=== PATIENT | female | born 1950 | race Hispanic/Latino ===

== ENCOUNTER 2017-01-22 17:33 | Inpatient (IN) | payer MEDICARE, OTHER ==
[2017-01-22] MEDS ORDERED: Piperacillin/Tazobact 3.375 gm 100 ML IVPB STA (18:49)
[2017-01-22 19:22] LABS: BASO # 0.1 K/uL (0.0-0.2); BASO % 0.8 % (0.0-2.0); EOS % 0.4 % (0.0-4.0); HEMOGLOBIN 16.1 g/dL (11.0-16.0); LYMPH # 2.3 K/uL (1.0-4.3); LYMPH % 22.6 % (20.0-40.0); MEAN CORPUSCULAR HGB CONC 33.3 g/dL (33.0-37.0); MEAN PLATELET VOLUME 10.8 fL (7.2-11.7); MONO # 0.6 K/uL (0.0-0.8); MONO % 5.7 % (0.0-10.0); NEUT # 7.1 K/uL (1.8-7.0); NEUT % 70.5 % (50.0-75.0); NRBC % 0.1 % (0.0-2.0); RBC 5.18 Mil/uL (3.80-5.20); RED CELL DISTRIBUTION WIDTH 14.4 % (11.5-14.5); WHITE BLOOD COUNT 10.1 K/uL (4.8-10.8)
[2017-01-22] MEDS ORDERED: Vancomycin 1 GM 1 GM/250 ML BAG IVPB ONE (19:24)
[2017-01-22] MEDS ORDERED: Piperacillin/Tazobact 3.375 gm 100 ML IVPB ONE (19:25)
[2017-01-22 19:29] LABS: ALBUMIN 4.5 g/dL (3.5-5.0)
[2017-01-22 19:31] LABS: GFR AFRICAN-AMERICAN > 60; GFR NON-AFRICAN AMERICAN > 60
[2017-01-22 19:32] LABS: ALB/GLOB RATIO 1.2 (1.0-2.1); ALT/SGPT 42 U/L (9-52); AST/SGOT 35 U/L (14-36); BLOOD UREA NITROGEN 8 mg/dL (7-17); INR 1.1; PROTHROMBIN TIME 11.9 SECONDS (9.7-12.2)
[2017-01-22 19:33] LABS: CALCIUM 8.8 mg/dl (8.6-10.4)
--- NOTE | 2017-01-22 19:53 | C.PDOC ---
History Of Present Illness Patient is a 67 y/o female, with history of breast CA, that presents to the ED for evaluation of wounds, and ulcers to left chest wall. Notes that she was diagnosed with breast CA 1 year ago, and refused any radiation therapy. Pt states that a new ulcer is developing now. Otherwise, denies any fever, or any other complaints at this time. Time Seen by Provider: 01/22/17 18:40 Chief Complaint (Nursing): Abnormal Skin Integrity History Per: Patient History/Exam Limitations: no limitations Onset/Duration Of Symptoms: Days Current Symptoms Are (Timing): Still Present Location Of Injury: Left: Chest, Anterior: Chest Recent travel outside of the [place]: No Additional History Per: Patient Past Medical History Reviewed: Historical Data, Nursing Documentation, Vital Signs Vital Signs: Last Vital Signs Temp 97.6 F 01/22/17 21:01 Pulse 81 01/22/17 21:01 Resp 20 01/22/17 21:01 BP 138/74 01/22/17 21:01 Pulse Ox 95 01/22/17 21:58 - Medical History PMH: Pneumothorax Denies: Chronic Kidney Disease - [facility] Procedures EXCISION OF LEFT BREAST, EXTERNAL APPROACH (12/24/15) Family History: States: Unknown Family Hx - Social History Hx Alcohol Use: Yes (quit 2 years ago) Hx Substance Use: No - Immunization History Hx Tetanus Toxoid Vaccination: No Hx Influenza Vaccination: No Hx Pneumococcal Vaccination: No Review Of Systems Except As Marked, All Systems Reviewed And Found Negative. Constitutional: Negative for: Fever, Chills Cardiovascular: Negative for: Chest Pain, Palpitations, Light Headedness Respiratory: Negative for: Shortness of Breath Skin: Positive for: Other (wound and ulcer to left chest wall) Physical Exam - Physical Exam Appears: Non-toxic, No Acute Distress Skin: Warm, Dry, Other (Left breast: 2cm of superficial ulcer that appears necrotic. Left side: 2cm of ulcer with purulent discharge) Head: Atraumatic, Normacephalic Eye(s): bilateral: Normal Inspection, EOMI Neck: Normal ROM, Supple Chest: Symmetrical, Deformity (deformed left breast with multiple ulcers ) Cardiovascular: Rhythm Regular, No Murmur Respiratory: Normal Breath Sounds, No Rales, No Rhonchi, No Wheezing Gastrointestinal/Abdominal: Soft, No Tenderness Extremity: Normal ROM, No Deformity Neurological/Psych: Oriented x3, Normal Speech, Normal Cognition ED Course And Treatment - Laboratory Results Result Diagrams: 01/22/17 19:12 01/22/17 19:12 O2 Sat by Pulse Oximetry: 96 (on RA) Pulse Ox Interpretation: Normal Progress Note: Labs, CXR ordered and reviewed. Patient was given Vancomycin, and Zosyn in the ER. On reassessment, patient is resting comfortably, with no acute distress. Disposition - Disposition Disposition: HOSPITALIZED Disposition Time: 07:00 Condition: FAIR - Clinical Impression Clinical Impression: Ulcer of skin of breast, Breast cancer - Scribe Statement The provider has reviewed the documentation as recorded by the Scribe Angelo Esquivel All medical record entries made by the Joyibzeferino were at my direction and personally dictated by me. I have reviewed the chart and agree that the record accurately reflects my personal performance of the history, physical exam, medical decision making, and the department course for this patient. I have also personally directed, reviewed, and agree with the discharge instructions and disposition.
[2017-01-22 21:03] VITALS: RESP 20
--- NOTE | 2017-01-22 23:56 | CP.PCM.CON ---
History of Present Illness - History of Present Illness History of Present Illness: INFECTIOUS DISEASE CONSULT. HPI; .67-year-old female with history of LT. breast CA diagnosed one year ago when she presented to the ER with a necrotic mass left breast. Patient has refused radiation therapy but is on by mouth chemotherapy prescribed by her oncologist.CT chest in December 2015 showed bilateral pulmonary nodules likely metastatic disease both lungs. Patient states that a new ulcer is now developing. Patient denies any fever or any other complaints at this time. Patient denies any cough or expectoration or hemoptysis. Patient is a heavy smoker for past several years but states has recently quit smoking. INFECTIOUS DISEASE CONSULTATION REQUESTED BY PMD FOR FUNGATING NECROTIC ULCER LEFT BREAST. patient was started on IV Zosyn 3.3758 hourly.. Patient denies any weight loss or loss of appetite. PMH; PTX., CA LT BREAST WITH METASTASIS TO THE LUNG.DX 2016 ALLERGY; NKA FH;DENIES HISTORY OF CANCER OF THE BREAST IN FAMILY MEMBERS. SOCIAL HISTORY; SMOKING >10 CIGARETTES /DAY.FOR SEVERAL YEARS.RECENTLY QUIT SMOKING ONE MONTH AGO. DENIES USE OF ILLICIT DRUGS. QUIT ALCOHOL USE FEW YEARS AGO. MEDS; REVIEWED. Review of Systems - Constitutional Constitutional: absent: Chills, Fever - EENT Eyes: absent: Change in Vision Nose/Mouth/Throat: absent: Mouth Lesions, Sore Throat - Breasts Breasts: Change in Shape, Skin Changes (LEFT BREAST WITH NECROTIC ULCER AND INVOLUTION OF THE BREAST. D.RAINAGE AT THE BASE OF THE ULCER) - Cardiovascular Cardiovascular: Dyspnea on Exertion. absent: Chest Pain at Rest, Dyspnea - Respiratory Respiratory: absent: Cough, Hemoptysis - Gastrointestinal Gastrointestinal: absent: Abdominal Pain, Nausea, Vomiting - Genitourinary Genitourinary: absent: Dysuria, Pyuria - Menstruation Menstruation: Post Menopausal - Integumentary Integumentary: Skin Ulcer (LEFT BREAST.) - Neurological Neurological: absent: Headaches ( wE'LL), Vertigo - Hematologic/Lymphatic Hematologic: As Per HPI. absent: Lymphadenopathy Past Patient History - Infectious Disease Hx of Infectious Diseases: None - Past Medical History & Family History Past Medical History?: Yes - Past Social History Smoking Status: Light Smoker < 10 Cigarettes Daily - CARDIAC Hx Cardiac Disorders: No - PULMONARY Other/Comment: pneumothorax - NEUROLOGICAL Hx Neurological Disorder: No - HEENT Hx HEENT Problems: No - RENAL Hx Chronic Kidney Disease: No - ENDOCRINE/METABOLIC Hx Endocrine Disorders: No - HEMATOLOGICAL/ONCOLOGICAL Hx Blood Disorders: No Other/Comment: PT DENIES HISTORY - INTEGUMENTARY Hx Dermatological Problems: No Other/Comment: left breast scab - MUSCULOSKELETAL/RHEUMATOLOGICAL Hx Falls: No - GASTROINTESTINAL Hx Vomiting: No - GENITOURINARY/GYNECOLOGICAL Hx Genitourinary Disorders: No - PSYCHIATRIC Hx Substance Use: No - SURGICAL HISTORY Hx Surgeries: Yes Hx Breast Biopsy: Yes - ANESTHESIA Hx Anesthesia: Yes Hx Anesthesia Reactions: No Hx Malignant Hyperthermia: No Has any member of the family had a problem w/ anesthesia?: No Meds Allergies/Adverse Reactions: Allergies Allergy/AdvReac Type Severity Reaction Status Date / Time No Known Allergies Allergy Verified 01/22/17 18:05 - Medications Medications: Current Medications Piperacillin Sod/Tazobactam Sod (Zosyn 3.375 Gm Iv Premix) 3.375 gm in 50 mls @ 100 mls/hr IVPB Q8H JET Pneumococcal Polyvalent Vaccine (Pneumovax 23 Vaccine) 0.5 ml IM .ONCE ONE Stop: 01/24/17 10:01 Physical Exam - Constitutional Appears: No Acute Distress - Head Exam Head Exam: NORMAL INSPECTION - Eye Exam Eye Exam: EOMI, PERRL. absent: Scleral icterus - ENT Exam ENT Exam: Normal Oropharynx - Neck Exam Neck exam: Negative for: Lymphadenopathy - Respiratory Exam Respiratory Exam: Chest Wall Tenderness (LEFT SIDE CHEST WALL BREAST ULCER WITH DRAINAGE AND MALODOROUS DISCHARGE.), Clear to Auscultation Bilateral - Cardiovascular Exam Cardiovascular Exam: REGULAR RHYTHM, +S1, +S2 - GI/Abdominal Exam GI & Abdominal Exam: Normal Bowel Sounds, Soft. absent: Organomegaly - Extremities Exam Extremities exam: Positive for: pedal pulses present. Negative for: calf tenderness, pedal edema - Neurological Exam Neurological exam: Alert, CN II-XII Intact, Oriented x3, Reflexes Normal - Psychiatric Exam Psychiatric exam: Normal Mood - Skin Skin Exam: Normal Color, Warm Results - Vital Signs Recent Vital Signs: Last Vital Signs Temp 97.6 F 01/22/17 21:01 Pulse 81 01/22/17 21:01 Resp 20 01/22/17 21:01 BP 138/74 01/22/17 21:01 Pulse Ox 95 01/22/17 21:58 - Labs Result Diagrams: 01/23/17 07:31 01/23/17 07:31 - Imaging and Cardiology Chest x-ray Status: Report reviewed by me (increased interstitial markings with upper lobe granulomatous changes. Deformity left breast ?previous surgery.) Assessment & Plan (1) Ulcer of chest wall with necrosis of muscle Assessment and Plan: pancultures. continue IV Zosyn 3.375 every 8 hourly .01/22/17 At IV vancomycin 1 g every 24 hourly. 01/22/17. Follow-up Vanco trough level prior to the fourth dose and keep it between 10 and 20. Follow-up renal functions closely. Will adjust antibiotics after cultures are obtained. Wound care for left breast ulcer. Status: Acute (2) Breast cancer Assessment and Plan: patient has left breast CA WITH LUNG METASTASIS DIAGNOSIS 2015. [facility] CHEMOTHERAPY WITH ONCOLOGIST DR GRAVES. Status: Acute (3) COPD (chronic obstructive pulmonary disease) Status: Acute (4) Tobacco abuse Assessment and Plan: tobacco cessation encouraged. Status: Acute
--- NOTE | 2017-01-22 23:56 | CP.PCM.HP ---
History of Present Illness - History of Present Illness History of Present Illness: COMPREHENSIVE HISTORY & PHYSICAL EXAM HPI H/O BREAST CA SEEN FIRST TIME IN IN 2016 WITH ULCERATING MASS ON LEFT CHEST WALLWITH DRAINAGE GROWING SA NOT MRSA , TREATED WITH IV AB AND F/U WITH ONCOLOGY . APPERENTLY PT HAS REFUSED SOME OF THE TREATMENT AND NOW HAS PURULENT DRAINING ULCER ON LEFT CHEST WALL 2016 , CT CHEST SHOWED LEFT BREAST MASS INFILTRATING CHEST WALL AND METS TO LUNGS PAST HIST. PERSONAL HIST: Smoking. QUIT 1 YR AGO 40 PPD Alcohol. N Allergy N Travel_- . FAMILY HIST : ROS : Constitutional: Negative for weight change, chills, night sweats, fatigue and usage of assist device. Eyes: Negative for redness, swelling, itching, discharge, vision changes, blurry vision, double vision, glaucoma, cataracts, Ears: Negative for hearing loss, ringing, , tinnitus, vertigo Nose: Negative for rhinorrhea, stuffiness, sniffing, itching, postnasal drip, discoloration, nasal congestion and epistaxis. Throat: Negative for throat clearing, sore throat, hoarseness, difficulty swallowing and difficulty speaking. Respiratory: Negative for cough, , sputum production, chest tightness, wheezing, pleuritic chest pain ,daytime somnolence, chronic cough, hemoptysis, snoring at night, Cardiovascular: Negative for chest pain, palpitations, orthopnea, PND, Edema of legs, leg cramps, angina, claudication, , irregular heartbeat, Neurology: Negative for irritability, muscle weakness, numbness and tingling, seizures, tremors, migraines, slurred speech, syncope, memory loss, mood changes , recurrent headaches Gastrointestinal: Negative for difficulty swallowing, diarrhea, constipation, black stools, rectal bleeding, nausea, flatulence, reflux, poor appetite, changes in bowel habits, abdominal pain Genitourinary: Negative for frequent urination, hematuria, discharge, incontinence, urinary retention, frequent UTI, Psychiatric: Negative for depression, anxiety/panic, suicidal tendencies, Musculoskeletal: Negative for swollen joints, back pain, , neck pain, morning stiffness of joints, . Skin: Negative for rash, ulcers, itching, dry skin and pigmented lesions. P/E: Constitutional: Appears stated age and in no apparent distress. Head: Normocephalic. Ears: External ear canals patent without inflammation. Tympanic membranes intact with normal light reflex and landmark. Eyes: Pupils are central, bilaterally equal, symmetrical and reacts to light with normal movements and no icterus or pallor. Nose: External nares are patent. Mucosa is pink Mouth-Throat: Good general appearance and condition. No post-pharyngeal/oropharyngeal erythema and tonsillar hypertrophy. Good dental hygiene. Neck-Lymphatic: Neck is supple with normal ROM, no thyromegaly, lymph nodes or masses. JVD is normal with no carotid bruit. Lungs: Clear to percussion and auscultation with bilateral normal air entry. Cardiovascular: S1 and S2 are normal with no murmurs, gallops and rub. GI Exam: No hepatomegaly. Abdomen is soft and non-tender. No Organomegaly , masses or hernias are evident and bowel sounds are normal and active. Neurology: Higher function and all cranial nerves intact, with no gross motor or sensory deficit. Superficial and deep reflexes are normal with downwards planters. No cerebellar deficit with normal gait. Musculoskeletal: No tender spots with normal curvature of the spine with no swelling or restricted ROM of the small and large joints. Extremities: Homans sign absent. Intact pulses with no pitting edema, calf tenderness or skin color changes. Skin: LARGE ULCER ON LEFT SIDE OF CHEST WALL WITH PURULENT DISCHARGE LAB/RADIOLOGY: ASSESMENT : METASTATIC BREAST CA WITH INFECTED ULCER ON CHEST WALL PLAN: SEE ORDERS Present on Admission - Present on Admission Any Indicators Present on Admission: No Past Patient History - Infectious Disease Hx of Infectious Diseases: None - Past Medical History & Family History Past Medical History?: Yes - Past Social History Smoking Status: Light Smoker < 10 Cigarettes Daily - CARDIAC Hx Cardiac Disorders: No - PULMONARY Other/Comment: pneumothorax - NEUROLOGICAL Hx Neurological Disorder: No - HEENT Hx HEENT Problems: No - RENAL Hx Chronic Kidney Disease: No - ENDOCRINE/METABOLIC Hx Endocrine Disorders: No - HEMATOLOGICAL/ONCOLOGICAL Hx Blood Disorders: No Other/Comment: PT DENIES HISTORY - INTEGUMENTARY Hx Dermatological Problems: No Other/Comment: left breast scab - MUSCULOSKELETAL/RHEUMATOLOGICAL Hx Falls: No - GASTROINTESTINAL Hx Vomiting: No - GENITOURINARY/GYNECOLOGICAL Hx Genitourinary Disorders: No - PSYCHIATRIC Hx Substance Use: No - SURGICAL HISTORY Hx Surgeries: Yes Hx Breast Biopsy: Yes - ANESTHESIA Hx Anesthesia: Yes Hx Anesthesia Reactions: No Hx Malignant Hyperthermia: No Has any member of the family had a problem w/ anesthesia?: No Meds Allergies/Adverse Reactions: Allergies Allergy/AdvReac Type Severity Reaction Status Date / Time No Known Allergies Allergy Verified 01/22/17 18:05 Results - Vital Signs Recent Vital Signs: Last Vital Signs Temp 97.6 F 01/22/17 21:01 Pulse 81 01/22/17 21:01 Resp 20 01/22/17 21:01 BP 138/74 01/22/17 21:01 Pulse Ox 95 01/22/17 21:58 - Labs Result Diagrams: 01/23/17 07:31 01/23/17 07:31
[2017-01-23] MEDS: Piperacill/Tazo 3.375gm in Dex 3.375 GM/50 ML BAG IVPB SCH ×3 (02:57→19:21)
[2017-01-23 07:42] LABS: BASO # 0.1 K/uL (0.0-0.2); EOS # 0.1 K/uL (0.0-0.7); EOS % 1.2 % (0.0-4.0); HEMOGLOBIN 15.3 g/dL (11.0-16.0); LYMPH # 2.8 K/uL (1.0-4.3); LYMPH % 33.4 % (20.0-40.0); MEAN CELL VOLUME 92.6 fL (81.0-99.0); MEAN CORPUSCULAR HGB CONC 33.4 g/dL (33.0-37.0); MEAN PLATELET VOLUME 11.1 fL (7.2-11.7); MONO # 0.5 K/uL (0.0-0.8); MONO % 6.1 % (0.0-10.0); NEUT % 58.3 % (50.0-75.0); NRBC % 0.2 % (0.0-2.0); RBC 4.95 Mil/uL (3.80-5.20); WHITE BLOOD COUNT 8.5 K/uL (4.8-10.8)
[2017-01-23 08:09] LABS: ALB/GLOB RATIO 1.2 (1.0-2.1); ALT/SGPT 34 U/L (9-52); AST/SGOT 35 U/L (14-36); BILIRUBIN,DIRECT 0.3 mg/dL (0.0-0.4); BLOOD UREA NITROGEN 8 mg/dL (7-17); CALCIUM 9.3 mg/dl (8.6-10.4); GFR AFRICAN-AMERICAN > 60; GFR NON-AFRICAN AMERICAN > 60
--- NOTE | 2017-01-23 09:36 | RAD ---
HISTORY: Chest pain COMPARISON: 12/24/2015 FINDINGS: LUNGS: Biapical pleural thickening with upper lobe granulomatous changes. Diffuse increased interstitial lung markings. Deformity of the left breast, perhaps sequelae of prior surgery. Correlation with lateral view may be helpful. PLEURA: No significant pleural effusion identified, no pneumothorax apparent. CARDIOVASCULAR: Normal. OSSEOUS STRUCTURES: No significant abnormalities. VISUALIZED UPPER ABDOMEN: Normal. OTHER FINDINGS: None. IMPRESSION: Biapical pleural thickening with upper lobe granulomatous changes. Diffuse increased interstitial lung markings. Deformity of the left breast, perhaps sequelae of prior surgery. Correlation with lateral view may be helpful.
[2017-01-23] MEDS: Enoxaparin 40 mg Syringe SC SCH (11:26)
--- NOTE | 2017-01-23 13:45 | CP.PCM.PN ---
Subjective - Date & Time of Evaluation Date of Evaluation: 01/23/17 Time of Evaluation: 13:43 - Subjective Subjective: CHIEF COMPLAINTS TODAY : MILD DISCOMFORT LEFT CHEST WALL ROS. HEENT : N. Resp : No cough, wheezing ,pleuritic CP ,or hemoptysis Cardio : No anginal CP, PND, orthopnea, palpitation GI : No abd.pain, n/v ,diarrhea or GI bleeding . GOLD BLOWER : No headache, vertigo, focal deficit. Musculoskel : No joint swelling , Derm : No rash Psych : Normal affect. Ext : No swelling ,calf pain PE. Pt. is alert awake in no distress. V.S As noted in the chart Head ,ear nose,throat and eyes : Normal. Neck : Supple with normal carotids. Lungs: Clear air entry. Heart : S1 & S2 normal with S4. No murmur. Abd : Soft non tender with normal bowel sounds. Neuro : Moves all ext. with no localized deficit. Ext : No edema with intact pulses.Non tender calves Derm : PURULENT DRAINING ULCER ON LEFT CHEST WALL WITH CELLULITIS LABS/RADIOLOGY: ASSESSMENT/PLAN : ID/ONCOLOGY CONSULT Objective - Vital Signs/Intake and Output Vital Signs (last 24 hours): Temp Pulse Resp BP Pulse Ox 97.4 F L 68 20 119/77 96 01/23/17 08:00 01/23/17 08:00 01/23/17 08:00 01/23/17 08:00 01/23/17 08:00 - Medications Medications: Current Medications Enoxaparin Sodium (Lovenox) 40 mg SC DAILY [facility] Last Admin: 01/23/17 11:26 Dose: 40 mg Piperacillin Sod/Tazobactam Sod (Zosyn 3.375 Gm Iv Premix) 3.375 gm in 50 mls @ 100 mls/hr IVPB Q8H JET Last Admin: 01/23/17 11:29 Dose: 100 mls/hr Vancomycin HCl 1 gm/ Sodium (Chloride) 250 mls @ 166.7 mls/hr IVPB Q24H JET Last Admin: 01/23/17 00:27 Dose: 166.7 mls/hr Pneumococcal Polyvalent Vaccine (Pneumovax 23 Vaccine) 0.5 ml IM .ONCE ONE Stop: 01/24/17 10:01 - Labs Labs: 01/23/17 07:31 07/07/17 07:31 PT 11.9 SECONDS (9.7-12.2) 01/22/17 19:12 INR 1.1 01/22/17 19:12 APTT 28 SECONDS (21-34) 01/22/17 19:12
--- NOTE | 2017-01-23 19:24 | CP.PCM.CON ---
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 The patient was initially diagnosed in 12/2015 after presenting with a large ulcerated breast mass. She deferred radiation therapy and was placed on exemestane with excellent response. She has not been seen in the office since 05/2016. She reports the breast mass shrank considerably but most recently small spots arose which concerned her so she came to the ER. She denies shortness of breath and chest pain. Past medical history: Stage IV breast cancer Past surgical history: None Family history: Denies hematologic and oncologic problems Social history: +tobacco abuse Allergies: NKA Review of systems: All remaining review of systems including HEENT, cardiovascular, respiratory, gastrointestinal, genitourinary, musculoskeletal, dermatologic, neurologic, and psychiatric are negative unless mentioned in the HPI. Past Patient History - Infectious Disease Hx of Infectious Diseases: None - Past Medical History & Family History Past Medical History?: Yes - Past Social History Smoking Status: Light Smoker < 10 Cigarettes Daily - CARDIAC Hx Cardiac Disorders: No - PULMONARY Other/Comment: pneumothorax - NEUROLOGICAL Hx Neurological Disorder: No - HEENT Hx HEENT Problems: No - RENAL Hx Chronic Kidney Disease: No - ENDOCRINE/METABOLIC Hx Endocrine Disorders: No - HEMATOLOGICAL/ONCOLOGICAL Hx Blood Disorders: No Other/Comment: PT DENIES HISTORY - INTEGUMENTARY Hx Dermatological Problems: No Other/Comment: left breast scab - MUSCULOSKELETAL/RHEUMATOLOGICAL Hx Falls: No - GASTROINTESTINAL Hx Vomiting: No - GENITOURINARY/GYNECOLOGICAL Hx Genitourinary Disorders: No - PSYCHIATRIC Hx Substance Use: No - SURGICAL HISTORY Hx Surgeries: Yes Hx Breast Biopsy: Yes - ANESTHESIA Hx Anesthesia: Yes Hx Anesthesia Reactions: No Hx Malignant Hyperthermia: No Has any member of the family had a problem w/ anesthesia?: No Meds Allergies/Adverse Reactions: Allergies Allergy/AdvReac Type Severity Reaction Status Date / Time No Known Allergies Allergy Verified 01/22/17 18:05 - Medications Medications: Current Medications Enoxaparin Sodium (Lovenox) 40 mg SC DAILY [facility] Last Admin: 01/23/17 11:26 Dose: 40 mg Piperacillin Sod/Tazobactam Sod (Zosyn 3.375 Gm Iv Premix) 3.375 gm in 50 mls @ 100 mls/hr IVPB Q8H [facility] Last Admin: 01/23/17 19:21 Dose: 100 mls/hr Vancomycin HCl 1 gm/ Sodium (Chloride) 250 mls @ 166.7 mls/hr IVPB Q24H [facility] Last Admin: 01/23/17 00:27 Dose: 166.7 mls/hr Pneumococcal Polyvalent Vaccine (Pneumovax 23 Vaccine) 0.5 ml IM .ONCE ONE Stop: 01/24/17 10:01 Physical Exam - Head Exam Head Exam: ATRAUMATIC - Eye Exam Eye Exam: Normal appearance - ENT Exam ENT Exam: Mucous Membranes Dry - Respiratory Exam Respiratory Exam: NORMAL BREATHING PATTERN - Cardiovascular Exam Cardiovascular Exam: +S1, +S2 - GI/Abdominal Exam GI & Abdominal Exam: Normal Bowel Sounds - Extremities Exam Extremities exam: Positive for: normal inspection - Neurological Exam Neurological exam: Oriented x3 - Psychiatric Exam Psychiatric exam: Normal Affect, Normal Mood - Skin Skin Exam: Warm Results - Vital Signs Recent Vital Signs: Last Vital Signs Temp 98.2 F 01/23/17 15:00 Pulse 85 01/23/17 15:00 Resp 20 01/23/17 15:00 BP 109/62 01/23/17 15:00 Pulse Ox 96 01/23/17 15:00 - Labs Result Diagrams: 01/24/17 07:00 01/24/17 07:00 Labs: Laboratory Results - last 24 hr 01/23/17 01/23/17 01/23/17 07:31 07:31 07:31 WBC 8.5 RBC 4.95 Hgb 15.3 Hct 45.8 MCV 92.6 MCH 31.0 MCHC 33.4 RDW 14.0 Plt Count 146 MPV 11.1 Neut % (Auto) 58.3 Lymph % (Auto) 33.4 [place] % (Auto) 6.1 Eos % (Auto) 1.2 Baso % (Auto) 1.0 Neut # 5.0 Lymph # 2.8 [place] # 0.5 Eos # 0.1 Baso # 0.1 ESR 1 Sodium 142 Potassium 3.5 L Chloride 103 Carbon Dioxide 28 Anion Gap 15 BUN 8 Creatinine 0.7 Est GFR ( Amer) > 60 Est GFR (Non-Af Amer) > 60 Random Glucose 104 Calcium 9.3 Total Bilirubin 1.0 Direct Bilirubin 0.3 AST 35 ALT 34 Alkaline Phosphatase 79 C-React Prot High Sens 1.12 Total Protein 7.3 Albumin 4.0 Globulin 3.3 Albumin/Globulin Ratio 1.2 CA 15-3 Antigen 16.6 Assessment & Plan (1) Breast cancer Assessment and Plan: skin ulceration with lung metastasis on hormonal therapy with great improvement in chest wall mass will repeat CT scan to evaluate systemic response to therapy discussed importance of outpatient f/u daily hormonal therapy Thank you for this interesting consult. Status: Acute
--- NOTE | 2017-01-23 22:26 | CP.PCM.PN ---
Subjective - Date & Time of Evaluation Date of Evaluation: 01/23/17 Time of Evaluation: 22:26 - Subjective Subjective: AFEBRILE, NO NEW COMPLAINTS. SEEN BY WOUND CARE Objective - Vital Signs/Intake and Output Vital Signs (last 24 hours): Temp Pulse Resp BP Pulse Ox 98.2 F 85 20 109/62 96 01/23/17 15:00 01/23/17 15:00 01/23/17 15:00 01/23/17 15:00 01/23/17 15:00 - Medications Medications: Current Medications Enoxaparin Sodium (Lovenox) 40 mg SC DAILY [facility] Last Admin: 01/23/17 11:26 Dose: 40 mg Piperacillin Sod/Tazobactam Sod (Zosyn 3.375 Gm Iv Premix) 3.375 gm in 50 mls @ 100 mls/hr IVPB Q8H [facility] Last Admin: 01/23/17 19:21 Dose: 100 mls/hr Vancomycin HCl 1 gm/ Sodium (Chloride) 250 mls @ 166.7 mls/hr IVPB Q24H [facility] Last Admin: 01/23/17 00:27 Dose: 166.7 mls/hr Pneumococcal Polyvalent Vaccine (Pneumovax 23 Vaccine) 0.5 ml IM .ONCE ONE Stop: 01/24/17 10:01 - Labs Labs: 01/23/17 07:31 01/23/17 07:31 PT 11.9 SECONDS (9.7-12.2) 01/22/17 19:12 INR 1.1 01/22/17 19:12 APTT 28 SECONDS (21-34) 01/22/17 19:12 - Constitutional Appears: No Acute Distress - Eye Exam Eye Exam: EOMI, PERRL. absent: Scleral icterus - ENT Exam ENT Exam: Normal Oropharynx - Neck Exam Neck Exam: Normal Inspection. absent: Lymphadenopathy - Respiratory Exam Respiratory Exam: Clear to Ausculation Bilateral - Cardiovascular Exam Cardiovascular Exam: REGULAR RHYTHM, +S1, +S2 - GI/Abdominal Exam GI & Abdominal Exam: Soft, Normal Bowel Sounds. absent: Organomegaly - Extremities Exam Extremities Exam: Normal Capillary Refill. absent: Calf Tenderness, Pedal Edema - Neurological Exam Neurological Exam: Alert, Awake, CN II-XII Intact, Normal Gait, Oriented x3, Reflexes Normal - Psychiatric Exam Psychiatric exam: Normal Mood - Additional Findings Additional findings: LEFT BREAST WOUND DRESSED BY WOUND CARE dRESSING CLEAN DRY AND INTACT pATIENT APPLIED MED HONEY Assessment and Plan (1) Ulcer of chest wall with necrosis of muscle Assessment & Plan: pancultures. continue IV Zosyn 3.375 every 8 hourly .01/22/17 At IV vancomycin 1 g every 24 hourly. 01/22/17. Follow-up Vanco trough level prior to the fourth dose and keep it between 10 and 20. Follow-up renal functions closely. Will adjust antibiotics after cultures are obtained. Wound care for left breast ulcer. Status: Acute (2) Breast cancer Assessment & Plan: patient has left breast CA WITH LUNG METASTASIS DIAGNOSIS 2015. rEVIEW CHEMOTHERAPY WITH ONCOLOGIST DR GRAVES. Status: Acute (3) Tobacco abuse Assessment & Plan: TOBACCO CESSATION ENCOURAGED Status: Acute (4) COPD (chronic obstructive pulmonary disease) Status: Acute
[2017-01-24] MEDS: Piperacill/Tazo 3.375gm in Dex 3.375 GM/50 ML BAG IVPB SCH ×3 (03:09→19:00)
[2017-01-24 07:23] LABS: BASO # 0.1 K/uL (0.0-0.2); BASO % 0.8 % (0.0-2.0); EOS # 0.1 K/uL (0.0-0.7); HEMOGLOBIN 14.7 g/dL (11.0-16.0); LYMPH # 2.9 K/uL (1.0-4.3); LYMPH % 38.6 % (20.0-40.0); MEAN CELL VOLUME 93.5 fL (81.0-99.0); MEAN CORPUSCULAR HEMOGLOBIN 30.8 pg (27.0-31.0); MEAN CORPUSCULAR HGB CONC 32.9 g/dL (33.0-37.0); MEAN PLATELET VOLUME 10.9 fL (7.2-11.7); MONO # 0.5 K/uL (0.0-0.8); MONO % 7.3 % (0.0-10.0); NEUT # 3.9 K/uL (1.8-7.0); NEUT % 52.3 % (50.0-75.0); RBC 4.76 Mil/uL (3.80-5.20); RED CELL DISTRIBUTION WIDTH 14.1 % (11.5-14.5); WHITE BLOOD COUNT 7.4 K/uL (4.8-10.8)
[2017-01-24 07:24] LABS: ALBUMIN 4.1 g/dL (3.5-5.0)
[2017-01-24 07:26] LABS: GFR AFRICAN-AMERICAN > 60; GFR NON-AFRICAN AMERICAN > 60
[2017-01-24 07:27] LABS: ALB/GLOB RATIO 1.2 (1.0-2.1); ALT/SGPT 39 U/L (9-52); AST/SGOT 44 U/L (14-36); BLOOD UREA NITROGEN 12 mg/dL (7-17)
[2017-01-24] MEDS ORDERED: Pneumococcal 23-Valent Vaccine IM ONE (10:00)
[2017-01-24] MEDS: Enoxaparin 40 mg Syringe SC SCH (11:01)
--- NOTE | 2017-01-24 13:49 | CP.PCM.PN ---
Subjective - Date & Time of Evaluation Date of Evaluation: 01/24/17 Time of Evaluation: 13:49 - Subjective Subjective: CHIEF COMPLAINTS TODAY : AFEBRILE, c/o mild discomfort left chest wall. Seen by hematology oncology and noted. ROS. HEENT : N. Resp : No cough, wheezing ,pleuritic CP ,or hemoptysis Cardio : No anginal CP, PND, orthopnea, palpitation GI : No abd.pain, n/v ,diarrhea or GI bleeding . 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 Musculoskel : No joint swelling , Derm : No rash Psych : Normal affect. Ext : No swelling ,calf pain PE. Pt. is alert awake in no distress. V.S As noted in the chart Head ,ear nose,throat and eyes : Normal. Neck : Supple with normal carotids. Lungs: Clear air entry. Heart : S1 & S2 normal with S4. No murmur. Abd : Soft non tender with normal bowel sounds. Neuro : Moves all ext. with no localized deficit. Ext : No edema with intact pulses.Non tender calves Derm : PURULENT DRAINING ULCER ON LEFT CHEST WALL WITH CELLULITIS LABS/RADIOLOGY: wound culture- staph aureus-sensitivity pending. Objective - Vital Signs/Intake and Output Vital Signs (last 24 hours): Temp Pulse Resp BP Pulse Ox 98.2 F 78 20 109/70 97 01/24/17 07:35 01/24/17 07:35 01/24/17 07:35 01/24/17 07:35 01/24/17 07:35 Intake and Output: 01/24/17 01/24/17 06:59 18:59 Intake Total 550 Balance 550 - Medications Medications: Current Medications Enoxaparin Sodium (Lovenox) 40 mg SC DAILY [facility] Last Admin: 01/24/17 11:01 Dose: Not Given Piperacillin Sod/Tazobactam Sod (Zosyn 3.375 Gm Iv Premix) 3.375 gm in 50 mls @ 100 mls/hr IVPB Q8H [facility] Last Admin: 01/24/17 10:53 Dose: 100 mls/hr Vancomycin HCl 1 gm/ Sodium (Chloride) 250 mls @ 166.7 mls/hr IVPB Q24H [facility] Last Admin: 01/23/17 23:50 Dose: 166.7 mls/hr - Labs Labs: 01/24/17 07:00 07/08/17 07:00 PT 11.9 SECONDS (9.7-12.2) 01/22/17 19:12 INR 1.1 01/22/17 19:12 APTT 28 SECONDS (21-34) 01/22/17 19:12 Assessment and Plan (1) 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 01/22/17. Follow-up Vanco trough level prior to the fourth dose and keep it between 10 and 20. Follow-up renal functions closely. Will adjust antibiotics after cultures are obtained. Wound care for left breast ulcer. Status: Acute (2) Breast cancer Assessment & Plan: patient for CT of the chest/ abdomen and pelvis with IV contrast today. Findings noted ct chest with IV contrast severe centrilobular paraseptal type emphysema. Bilateral pulmonary nodules with spiculated pleural-based mass in the lingula. Soft tissue deformity left breast-with postsurgical changes. ( see full report ) Status: Acute (3) Tobacco abuse Status: Acute (4) COPD (chronic obstructive pulmonary disease) Status: Acute
--- NOTE | 2017-01-24 14:03 | CP.PCM.PN ---
Subjective - Date & Time of Evaluation Date of Evaluation: 01/24/17 Time of Evaluation: 14:02 - Subjective Subjective: CHIEF COMPLAINTS TODAY : MILD DISCOMFORT LEFT CHEST WALL ROS. HEENT : N. Resp : No cough, wheezing ,pleuritic CP ,or hemoptysis Cardio : No anginal CP, PND, orthopnea, palpitation GI : No abd.pain, n/v ,diarrhea or GI bleeding . 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 Musculoskel : No joint swelling , Derm : No rash Psych : Normal affect. Ext : No swelling ,calf pain PE. Pt. is alert awake in no distress. V.S As noted in the chart Head ,ear nose,throat and eyes : Normal. Neck : Supple with normal carotids. Lungs: Clear air entry. Heart : S1 & S2 normal with S4. No murmur. Abd : Soft non tender with normal bowel sounds. Neuro : Moves all ext. with no localized deficit. Ext : No edema with intact pulses.Non tender calves Derm : PURULENT DRAINING ULCER ON LEFT CHEST WALL WITH CELLULITIS LABS/RADIOLOGY: C/S GRAM POS COCCI ASSESSMENT/PLAN : IV AB Objective - Vital Signs/Intake and Output Vital Signs (last 24 hours): Temp Pulse Resp BP Pulse Ox 98.2 F 78 20 109/70 97 01/24/17 07:35 01/24/17 07:35 01/24/17 07:35 01/24/17 07:35 01/24/17 07:35 Intake and Output: 01/24/17 01/24/17 11:59 23:59 Intake Total 300 Balance 300 - Medications Medications: Current Medications Enoxaparin Sodium (Lovenox) 40 mg SC DAILY [facility] Last Admin: 01/24/17 11:01 Dose: Not Given Piperacillin Sod/Tazobactam Sod (Zosyn 3.375 Gm Iv Premix) 3.375 gm in 50 mls @ 100 mls/hr IVPB Q8H [facility] Last Admin: 01/24/17 10:53 Dose: 100 mls/hr Vancomycin HCl 1 gm/ Sodium (Chloride) 250 mls @ 166.7 mls/hr IVPB Q24H [facility] Last Admin: 01/23/17 23:50 Dose: 166.7 mls/hr - Labs Labs: 01/24/17 07:00 01/24/17 07:00 PT 11.9 SECONDS (9.7-12.2) 01/22/17 19:12 INR 1.1 01/22/17 19:12 APTT 28 SECONDS (21-34) 01/22/17 19:12
[2017-01-24] MEDS ORDERED: Iohexol 300 100 ML IJ ONE (14:16)
--- NOTE | 2017-01-24 16:43 | CT ---
EXAM: CT Abdomen and Pelvis With Intravenous Contrast CLINICAL HISTORY: 67 years old, female; Pain; Abdominal pain; Generalized; Chest pain; Type not specified; Additional info: Breast cancer on treatment ? response TECHNIQUE: Axial computed tomography images of the abdomen and pelvis with intravenous contrast. This CT exam was performed using one or more of the following dose reduction techniques: automated exposure control, adjustment of the mA and/or kV according to patient size, and/or use of iterative reconstruction technique. Coronal and sagittal reformatted images were created and reviewed. CONTRAST: 100 mL of [id number] administered intravenously. COMPARISON: No relevant prior studies available. FINDINGS: Lower thorax: Pleural thickening is noted in the left hemithorax. ABDOMEN: Liver: Unremarkable. No mass. Gallbladder and bile ducts: Unremarkable. No calcified stones. No ductal dilation. Pancreas: Unremarkable. No mass. No ductal dilation. Spleen: Unremarkable. No splenomegaly. Adrenals: There is adreniform enlargement of both adrenal glands unchanged from previous. Kidneys and ureters: Unremarkable. No solid mass. No hydronephrosis. Stomach and bowel: Unremarkable. No obstruction. No mucosal thickening. Appendix: No findings to suggest acute appendicitis. PELVIS: Bladder: Unremarkable. No mass. Reproductive: There is an intrauterine device noted within the uterus. ABDOMEN and PELVIS: Intraperitoneal space: Unremarkable. No free air. No significant fluid collection. Bones/joints: There is a dextroscoliosis of the thoracic spine. There are secondary degenerative changes noted of the thoracic spine No acute fracture. No dislocation. Soft tissues: There is abnormal soft tissue thickening of the left breast Vasculature: Unremarkable. No abdominal aortic aneurysm. Lymph nodes: Unremarkable. No enlarged lymph nodes. IMPRESSION: 1. Abnormal soft tissue thickening and deformity of the left breast related to the patient's known breast cancer. 2. Pleural thickening noted in the left hemithorax. EXAM: CT Chest With Intravenous Contrast CLINICAL HISTORY: 67 years old, female; Pain; Abdominal pain; Generalized; Chest pain; Type not specified; Additional info: Breast cancer on treatment ? response TECHNIQUE: Axial computed tomography images of the chest with intravenous contrast. This CT exam was performed using one or more of the following dose reduction techniques: automated exposure control, adjustment of the mA and/or kV according to patient size, and/or use of iterative reconstruction technique. Coronal and sagittal reformatted images were created and reviewed. CONTRAST: 100 mL of [id number] administered intravenously. EXAM DATE/TIME: Exam ordered 01/24/2017 9:28 AM COMPARISON: No relevant prior studies available. FINDINGS: Lungs: There is a severe emphysema noted bilaterally predominantly of the centrilobular type with paraseptal type emphysema noted in the lung apices and along the fissures . 3 mm pleural-based pulmonary nodules noted in the right middle lobe. . A 3 mm pulmonary nodule is noted in the superior segment of the right upper lobe. A 3 mm pulmonary nodule is noted in the superior segment of the left upper lobe. Pleural space: A spiculated pleural-based parenchymal density is areas of pleural thickening are noted in the lingula. No pneumothorax. No significant effusion. Heart: Unremarkable. No cardiomegaly. No significant pericardial effusion. Bones/joints: Unremarkable. No acute fracture. No dislocation. Soft tissues: There is soft tissue thickening with retraction of the left breast. Calcification is noted within the area of soft tissue thickening. Vasculature: Unremarkable. No thoracic aortic aneurysm. Lymph nodes: Unremarkable. No enlarged lymph nodes. Adrenals: There is adreniform enlargement of both adrenal glands are stable IMPRESSION: 1. Severe central lobular and paraseptal type emphysema bilaterally 2. Bilateral pulmonary nodules including spiculated pleural-based mass in the lingula. Metastatic disease is among the diagnostic considerations. For high-risk patients (smoking history or other known risk factors) recommend follow-up CT at 15-21 months. If unchanged, no further follow-up. The patient's previous examination dated 12/24/2015 was not available at the time the study was reviewed. 3. Soft tissue distortion of the left breast which may be postsurgical or reflect the patient's known carcinoma
[2017-01-25] MEDS: Piperacill/Tazo 3.375gm in Dex 3.375 GM/50 ML BAG IVPB SCH ×3 (03:50→19:05)
[2017-01-25] MEDS: Enoxaparin 40 mg Syringe SC SCH (10:54)
--- NOTE | 2017-01-25 12:50 | CP.PCM.PN ---
Subjective - Date & Time of Evaluation Date of Evaluation: 01/24/17 Time of Evaluation: 18:00 - Subjective Subjective: Feeling better, breast discomfort improved Objective - Vital Signs/Intake and Output Vital Signs (last 24 hours): Temp Pulse Resp BP Pulse Ox 97.9 F 82 20 114/57 L 97 01/25/17 00:00 01/25/17 00:00 01/25/17 00:00 01/25/17 00:00 01/25/17 00:00 Intake and Output: 01/25/17 01/25/17 06:59 18:59 Intake Total 550 Balance 550 - Medications Medications: Current Medications Enoxaparin Sodium (Lovenox) 40 mg SC DAILY [facility] Last Admin: 01/25/17 10:54 Dose: Not Given Piperacillin Sod/Tazobactam Sod (Zosyn 3.375 Gm Iv Premix) 3.375 gm in 50 mls @ 100 mls/hr IVPB Q8H [facility] Last Admin: 01/25/17 10:53 Dose: 100 mls/hr Vancomycin HCl 1 gm/ Sodium (Chloride) 250 mls @ 166.7 mls/hr IVPB Q24H [facility] Last Admin: 01/24/17 23:50 Dose: 166.7 mls/hr - Labs Labs: 01/24/17 07:00 01/24/17 07:00 PT 11.9 SECONDS (9.7-12.2) 01/22/17 19:12 INR 1.1 01/22/17 19:12 APTT 28 SECONDS (21-34) 01/22/17 19:12 - Head Exam Head Exam: ATRAUMATIC - Eye Exam Eye Exam: Normal appearance - ENT Exam ENT Exam: Mucous Membranes Dry - Respiratory Exam Respiratory Exam: NORMAL BREATHING PATTERN - Cardiovascular Exam Cardiovascular Exam: +S1, +S2 - GI/Abdominal Exam GI & Abdominal Exam: Normal Bowel Sounds - Extremities Exam Extremities Exam: Normal Inspection Assessment and Plan (1) Breast cancer Assessment & Plan: stage IV; likely pulmonary mets. chest wall tumor decreased in size with hormonal therapy outpatient exemestane Status: Acute
--- NOTE | 2017-01-25 14:27 | CP.PCM.PN ---
Subjective - Date & Time of Evaluation Date of Evaluation: 01/25/17 Time of Evaluation: 14:27 - Subjective Subjective: CHIEF COMPLAINTS TODAY : AFEBRILE, c/o mild discomfort left chest wall. +ve drainage left breast ROS. HEENT : N. Resp : No cough, wheezing ,pleuritic CP ,or hemoptysis Cardio : No anginal CP, PND, orthopnea, palpitation GI : No abd.pain, n/v ,diarrhea or GI bleeding . 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 Musculoskel : No joint swelling , Derm : No rash Psych : Normal affect. Ext : No swelling ,calf pain PE. Pt. is alert awake in no distress. V.S As noted in the chart Head ,ear nose,throat and eyes : Normal. Neck : Supple with normal carotids. Lungs: Clear air entry. Heart : S1 & S2 normal with S4. No murmur. Abd : Soft non tender with normal bowel sounds. Neuro : Moves all ext. with no localized deficit. Ext : No edema with intact pulses.Non tender calves Derm : PURULENT DRAINING ULCER ON LEFT CHEST WALL WITH CELLULITIS LABS/RADIOLOGY: wound culture- staph aureus-MSSA Objective - Vital Signs/Intake and Output Vital Signs (last 24 hours): Temp Pulse Resp BP Pulse Ox 97.9 F 82 20 114/57 L 97 01/25/17 00:00 01/25/17 00:00 01/25/17 00:00 01/25/17 00:00 01/25/17 00:00 Intake and Output: 01/25/17 01/25/17 06:59 18:59 Intake Total 550 Balance 550 - Medications Medications: Current Medications Enoxaparin Sodium (Lovenox) 40 mg SC DAILY [facility] Last Admin: 01/25/17 10:54 Dose: Not Given Piperacillin Sod/Tazobactam Sod (Zosyn 3.375 Gm Iv Premix) 3.375 gm in 50 mls @ 100 mls/hr IVPB Q8H [facility] Last Admin: 01/25/17 10:53 Dose: 100 mls/hr Vancomycin HCl 1 gm/ Sodium (Chloride) 250 mls @ 166.7 mls/hr IVPB Q24H [facility] Last Admin: 01/24/17 23:50 Dose: 166.7 mls/hr - Labs Labs: 01/24/17 07:00 01/24/17 07:00 PT 11.9 SECONDS (9.7-12.2) 01/22/17 19:12 INR 1.1 01/22/17 19:12 APTT 28 SECONDS (21-34) 01/22/17 19:12 Assessment and Plan (1) 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 01/22/17. WILL ADJUST ABX ON DC ON THURSDAY.. Status: Acute (2) Breast cancer Assessment & Plan: ct chest with IV contrast severe centrilobular paraseptal type emphysema. Bilateral pulmonary nodules with spiculated pleural-based mass in the lingula. Soft tissue deformity left breast-with postsurgical changes. ( see full report PT. TO F/U WITH ONCOLOGY OPD. Status: Acute (3) Tobacco abuse Status: Acute (4) COPD (chronic obstructive pulmonary disease) Status: Acute
--- NOTE | 2017-01-25 14:41 | CP.PCM.PN ---
Subjective - Date & Time of Evaluation Date of Evaluation: 01/25/17 Time of Evaluation: 14:40 - Subjective Subjective: CHIEF COMPLAINTS TODAY : MILD DISCOMFORT LEFT CHEST WALL ROS. HEENT : N. Resp : No cough, wheezing ,pleuritic CP ,or hemoptysis Cardio : No anginal CP, PND, orthopnea, palpitation GI : No abd.pain, n/v ,diarrhea or GI bleeding . 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 Musculoskel : No joint swelling , Derm : No rash Psych : Normal affect. Ext : No swelling ,calf pain PE. Pt. is alert awake in no distress. V.S As noted in the chart Head ,ear nose,throat and eyes : Normal. Neck : Supple with normal carotids. Lungs: Clear air entry. Heart : S1 & S2 normal with S4. No murmur. Abd : Soft non tender with normal bowel sounds. Neuro : Moves all ext. with no localized deficit. Ext : No edema with intact pulses.Non tender calves Derm : PURULENT DRAINING ULCER ON LEFT CHEST WALL WITH CELLULITIS LABS/RADIOLOGY: C/S GRAM POS COCCI ,STAPH AUREUS ASSESSMENT/PLAN : IV AB Objective - Vital Signs/Intake and Output Vital Signs (last 24 hours): Temp Pulse Resp BP Pulse Ox 97.9 F 82 20 114/57 L 97 01/25/17 00:00 01/25/17 00:00 01/25/17 00:00 01/25/17 00:00 01/25/17 00:00 Intake and Output: 01/25/17 01/25/17 11:59 23:59 Intake Total 300 500 Balance 300 500 - Medications Medications: Current Medications Enoxaparin Sodium (Lovenox) 40 mg SC DAILY [facility] Last Admin: 01/25/17 10:54 Dose: Not Given Piperacillin Sod/Tazobactam Sod (Zosyn 3.375 Gm Iv Premix) 3.375 gm in 50 mls @ 100 mls/hr IVPB Q8H [facility] Last Admin: 01/25/17 10:53 Dose: 100 mls/hr Vancomycin HCl 1 gm/ Sodium (Chloride) 250 mls @ 166.7 mls/hr IVPB Q24H [facility] Last Admin: 01/24/17 23:50 Dose: 166.7 mls/hr - Labs Labs: 01/24/17 07:00 01/24/17 07:00 PT 11.9 SECONDS (9.7-12.2) 01/22/17 19:12 INR 1.1 01/22/17 19:12 APTT 28 SECONDS (21-34) 01/22/17 19:12
--- NOTE | 2017-01-26 00:39 | CP.PCM.PN ---
Subjective - Date & Time of Evaluation Date of Evaluation: 01/25/17 Time of Evaluation: 14:15 - Subjective Subjective: No complaints. Objective - Vital Signs/Intake and Output Vital Signs (last 24 hours): Temp Pulse Resp BP Pulse Ox 98.6 F 74 20 116/68 96 01/25/17 16:00 01/25/17 16:00 01/25/17 16:00 01/25/17 16:00 01/25/17 16:00 Intake and Output: 01/25/17 01/26/17 18:59 06:59 Intake Total 500 400 Balance 500 400 - Medications Medications: Current Medications Enoxaparin Sodium (Lovenox) 40 mg SC DAILY [facility] Last Admin: 01/25/17 10:54 Dose: Not Given Piperacillin Sod/Tazobactam Sod (Zosyn 3.375 Gm Iv Premix) 3.375 gm in 50 mls @ 100 mls/hr IVPB Q8H [facility] Last Admin: 01/25/17 19:05 Dose: 100 mls/hr Vancomycin HCl 1 gm/ Sodium (Chloride) 250 mls @ 166.7 mls/hr IVPB Q24H [facility] Last Admin: 01/24/17 23:50 Dose: 166.7 mls/hr - Labs Labs: 01/24/17 07:00 01/24/17 07:00 PT 11.9 SECONDS (9.7-12.2) 01/22/17 19:12 INR 1.1 01/22/17 19:12 APTT 28 SECONDS (21-34) 01/22/17 19:12 - Head Exam Head Exam: ATRAUMATIC - Eye Exam Eye Exam: Normal appearance - ENT Exam ENT Exam: Mucous Membranes Dry - Respiratory Exam Respiratory Exam: NORMAL BREATHING PATTERN - Cardiovascular Exam Cardiovascular Exam: +S1, +S2 - GI/Abdominal Exam GI & Abdominal Exam: Normal Bowel Sounds - Extremities Exam Extremities Exam: Normal Inspection Assessment and Plan (1) Breast cancer Assessment & Plan: lung metastasis doing well on hormonal therapy Status: Acute
[2017-01-26] MEDS ORDERED: Piperacill/Tazo 3.375gm in Dex 3.375 GM/50 ML BAG IVPB SCH (06:00)
[2017-01-26 07:48] VITALS: BP 110/60; PULSE 73; TEMP 97.5; O2SAT 98
[2017-01-26] MEDS: Enoxaparin 40 mg Syringe SC SCH (10:22)
--- NOTE | 2017-01-26 11:27 | CP.PCM.PN ---
Subjective - Date & Time of Evaluation Date of Evaluation: 01/26/17 Time of Evaluation: 11:27 - Subjective Subjective: CHIEF COMPLAINTS TODAY : AFEBRILE, c/o mild discomfort left chest wall. DECREASING drainage left breast . ANXIOUS TO GO HOME ROS. HEENT : N. Resp : No cough, wheezing ,pleuritic CP ,or hemoptysis Cardio : No anginal CP, PND, orthopnea, palpitation GI : No abd.pain, n/v ,diarrhea or GI bleeding . 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 Musculoskel : No joint swelling , Derm : No rash Psych : Normal affect. Ext : No swelling ,calf pain PE. Pt. is alert awake in no distress. V.S As noted in the chart Head ,ear nose,throat and eyes : Normal. Neck : Supple with normal carotids. Lungs: Clear air entry. Heart : S1 & S2 normal with S4. No murmur. Abd : Soft non tender with normal bowel sounds. Neuro : Moves all ext. with no localized deficit. Ext : No edema with intact pulses.Non tender calves Derm : PURULENT DRAINING ULCER ON LEFT CHEST WALL WITH CELLULITIS LABS/RADIOLOGY: wound culture- staph aureus-MSSA LABS REVIEWED Objective - Vital Signs/Intake and Output Vital Signs (last 24 hours): Temp Pulse Resp BP Pulse Ox 97.5 F L 73 20 110/60 98 01/26/17 07:44 01/26/17 07:44 01/26/17 07:44 01/26/17 07:44 01/26/17 07:44 Intake and Output: 01/26/17 01/26/17 06:59 18:59 Intake Total 950 Balance 950 - Medications Medications: Current Medications Enoxaparin Sodium (Lovenox) 40 mg SC DAILY [facility] Last Admin: 01/26/17 10:22 Dose: Not Given Vancomycin HCl 1 gm/ Sodium (Chloride) 250 mls @ 166.7 mls/hr IVPB Q24H [facility] Last Admin: 01/26/17 00:00 Dose: 166.7 mls/hr Piperacillin Sod/Tazobactam Sod (Zosyn 3.375 Gm Iv Premix) 3.375 gm in 50 mls @ 100 mls/hr IVPB Q8H [facility] Last Admin: 01/26/17 05:15 Dose: 100 mls/hr - Labs Labs: 01/24/17 07:00 01/24/17 07:00 PT 11.9 SECONDS (9.7-12.2) 01/22/17 19:12 INR 1.1 01/22/17 19:12 APTT 28 SECONDS (21-34) 01/22/17 19:12 Assessment and Plan (1) 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 01/22/17. CASE DISCUSSED WITH PRINCIPAL WEB DEVELOPER. MS VALLEJO. CAN BE DC ON PO LEVAQUIN 500MG OD DAILY X 10DAYS. F/U IN OFFICE NEXT WK. [facility] PER WOUND CARE. Status: Acute (2) Breast cancer Assessment & Plan: F/U WITH ONCOLOGY. PT ON EXEMESTANE PO OD HORMONAL THERAPY SINCE December Status: Acute (3) Tobacco abuse Assessment & Plan: CONSIDER TABACCO CESSATION. Status: Acute (4) COPD (chronic obstructive pulmonary disease) Status: Acute
--- NOTE | 2017-01-26 11:32 | CP.PCM.PN ---
Subjective - Date & Time of Evaluation Date of Evaluation: 01/26/17 Time of Evaluation: 11:32 - Subjective Subjective: EXECUTIVE RELATIONS SPECIALIST NOTIFIED BY ALISSA FERRER THAT PT WOULD LIKE TO BE D/C HOME TODAY. EXECUTIVE RELATIONS SPECIALIST DISCUSSED THIS WITH DR. TURNER, WHO IS IN AGREEMENT. PER DR. TURNER, PT TO CONTINUE LEVAQUIN 500 MG PO QD X 10 DAYS AND IS TO F/U IN HER OFFICE NEXT WEEK FOR REPEAT WOUND CX AND LFTS. TO ALSO F/U WITH ONC. PT ABLE TO DO WOUND CARE DAILY HERSELF AND IS REFUSING THE NEED FOR A WOUND RN TO VISIT HER IN THE HOME. WOUND CARE INSTRUCTIONS GIVEN TO PT AND SHE VERBALIZED UNDERSTANDING. EXECUTIVE RELATIONS SPECIALIST LEFT DETAILED MESSAGE FOR DR. RADFORD REGARDING THE D/C TODAY. FAMILY MEMBER TO PICK HER UP THIS AFTERNOON. NO FURTHER ORDERS. Objective - Vital Signs/Intake and Output Vital Signs (last 24 hours): Temp Pulse Resp BP Pulse Ox 97.5 F L 73 20 110/60 98 01/26/17 07:44 01/26/17 07:44 01/26/17 07:44 01/26/17 07:44 01/26/17 07:44 Intake and Output: 01/26/17 01/26/17 06:59 18:59 Intake Total 950 Balance 950 - Medications Medications: Current Medications Enoxaparin Sodium (Lovenox) 40 mg SC DAILY [facility] Last Admin: 01/26/17 10:22 Dose: Not Given Vancomycin HCl 1 gm/ Sodium (Chloride) 250 mls @ 166.7 mls/hr IVPB Q24H [facility] Last Admin: 01/26/17 00:00 Dose: 166.7 mls/hr Piperacillin Sod/Tazobactam Sod (Zosyn 3.375 Gm Iv Premix) 3.375 gm in 50 mls @ 100 mls/hr IVPB Q8H [facility] Last Admin: 01/26/17 05:15 Dose: 100 mls/hr - Labs Labs: 01/24/17 07:00 01/24/17 07:00 PT 11.9 SECONDS (9.7-12.2) 01/22/17 19:12 INR 1.1 01/22/17 19:12 APTT 28 SECONDS (21-34) 01/22/17 19:12
--- NOTE | 2017-01-26 13:31 | CP.PCM.DIS ---
Provider - Provider Date of Admission: 01/22/17 19:53 Attending physician: Anthony Cameron MD Time Spent in preparation of Discharge (in minutes): 35 Hospital Course - Lab Results Lab Results: Micro Results 01/22/17 20:56 Breast - Left Gram Stain - Final 01/22/17 20:56 Breast - Left Wound Culture - Final Staphylococcus Aureus Most Recent Lab Values WBC 7.4 K/uL (4.8-10.8) 01/24/17 07:00 RBC 4.76 Mil/uL (3.80-5.20) 01/24/17 07:00 Hgb 14.7 g/dL (11.0-16.0) 01/24/17 07:00 Hct 44.5 % (34.0-47.0) 01/24/17 07:00 MCV 93.5 fL (81.0-99.0) 01/24/17 07:00 MCH 30.8 pg (27.0-31.0) 01/24/17 07:00 MCHC 32.9 g/dL (33.0-37.0) L 01/24/17 07:00 RDW 14.1 % (11.5-14.5) 01/24/17 07:00 Plt Count 131 K/uL (130-400) 01/24/17 07:00 MPV 10.9 fL (7.2-11.7) 01/24/17 07:00 Neut % (Auto) 52.3 % (50.0-75.0) 01/24/17 07:00 Lymph % (Auto) 38.6 % (20.0-40.0) 01/24/17 07:00 [place]ke % (Auto) 7.3 % (0.0-10.0) 01/24/17 07:00 Eos % (Auto) 1.0 % (0.0-4.0) 01/24/17 07:00 Baso % (Auto) 0.8 % (0.0-2.0) 01/24/17 07:00 Neut # 3.9 K/uL (1.8-7.0) 01/24/17 07:00 Lymph # 2.9 K/uL (1.0-4.3) 01/24/17 07:00 Starke # 0.5 K/uL (0.0-0.8) 01/24/17 07:00 Eos # 0.1 K/uL (0.0-0.7) 01/24/17 07:00 Baso # 0.1 K/uL (0.0-0.2) 01/24/17 07:00 ESR 1 mm/hr (0-20) 01/23/17 07:31 PT 11.9 SECONDS (9.7-12.2) 01/22/17 19:12 INR 1.1 01/22/17 19:12 APTT 28 SECONDS (21-34) 01/22/17 19:12 Sodium 138 mmol/L (132-148) 01/24/17 07:00 Potassium 4.0 mmol/L (3.6-5.2) 01/24/17 07:00 Chloride 100 mmol/L (98-107) 01/24/17 07:00 Carbon Dioxide 28 mmol/L (22-30) 01/24/17 07:00 Anion Gap 14 (10-20) 01/24/17 07:00 BUN 12 mg/dL (7-17) 01/24/17 07:00 Creatinine 0.8 MG/DL (0.7-1.2) 01/24/17 07:00 Est GFR ( Amer) > 60 01/24/17 07:00 Est GFR (Non-Af Amer) > 60 01/24/17 07:00 Random Glucose 94 mg/dL (65-105) 01/24/17 07:00 Calcium 9.0 mg/dl (8.6-10.4) 01/24/17 07:00 Total Bilirubin 0.8 mg/dL (0.2-1.3) 01/24/17 07:00 Direct Bilirubin 0.3 mg/dL (0.0-0.4) 01/23/17 07:31 AST 44 U/L (14-36) H D 01/24/17 07:00 ALT 39 U/L (9-52) 01/24/17 07:00 Alkaline Phosphatase 85 U/L (38-126) 01/24/17 07:00 C-React Prot High Sens 1.12 mg/L (1.00-3.00) 01/23/17 07:31 Total Protein 7.4 g/dL (6.3-8.3) 01/24/17 07:00 Albumin 4.1 g/dL (3.5-5.0) 01/24/17 07:00 Globulin 3.3 gm/dL (2.2-3.9) 01/24/17 07:00 Albumin/Globulin Ratio 1.2 (1.0-2.1) 01/24/17 07:00 CA 15-3 Antigen 16.0 U/mL (0-35) 01/24/17 07:00 - Hospital Course Hospital Course: H/O BREAST CA SEEN FIRST TIME IN IN 2016 WITH ULCERATING MASS ON LEFT CHEST WALLWITH DRAINAGE GROWING SA NOT MRSA , TREATED WITH IV AB AND F/U WITH ONCOLOGY . APPERENTLY PT HAS REFUSED SOME OF THE TREATMENT AND NOW HAS PURULENT DRAINING ULCER ON LEFT CHEST WALL 2016 , CT CHEST SHOWED LEFT BREAST MASS INFILTRATING CHEST WALL AND METS TO LUNGS ID/ONCO WERE CONSULTED ULCER GREW STAPH AUREUS , NOT MRSA PT RESPONDED WITH IV AB PT WAS D/ABELARDO ON PO AB WILL F/U ID/ONCOLOGY FOR FURTHER TREATMENT Discharge Exam - Head Exam Head Exam: ATRAUMATIC Discharge Plan - Discharge Medications Prescriptions: levoFLOXacin [Levaquin] 500 mg PO DAILY #10 tab - Follow Up Plan Condition: FAIR Disposition: HOME/ ROUTINE Instructions: Levofloxacin (By mouth), Breast Abscess Drainage (DC), Wound Infection (DC), Heart Healthy Diet (DC), Acute Wound Care (DC) Additional Instructions: -FOLLOW UP WITH DR. MOREL IN HER OFFICE NEXT WEEK---CALL TODAY OR TOMORROW TO MAKE AN APPOINTMENT. -DR. MOREL WILL RECHECK YOU BLOOD WORK AND A WOUND CULTURE WHEN YOU SEE HER NEXT WEEK TO MAKE SURE THE ANTIBIOTIC IS WORKING. -CONTINUE YOUR OTHER MEDICINE AT HOME USUAL. -YOU WILL BED ON TE ANTIBIOTIC LEVAQUIN 500 MG (1 TABLET) BY MOUTH ONCE A DAY FOR A TOTAL OF 10 DAYS. -FOLLOW UP WITH DR. LIVINGSTON IN THE OFFICE WITHIN 1-2 WEEKS. -MAKE SURE YOU CLEAN THE WOUND WITH NORMAL SALINE AND APPLY MEDIHONEY OINTMENT, THEN COVER WITH DRESSING---DO THIS ONCE A DAY. IF YOU NOTICE WORSENING TO THE SKIN, CONTACT DR. CAMERON OR DR. MOREL.\ -FOR FURTHER QUESTIONS OR CONCERNS, CONTACT DR. CAMERON. Referrals: Emmanuel Livingston MD [Staff Provider] - Lisset Morel MD [Staff Provider] - Anthony Cameron MD [Staff Provider] -
== END 2017-01-26 12:52 | disposition home or self-care (01) | DRG 598 ==
LOC: C.ER 17:33 → C.3T 19:53
PROVIDERS: ADMIT Internal Medicine Cardiovascular Disease; ATTEND Internal Medicine Cardiovascular Disease
DX: C50.912 Malignant neoplasm of unspecified site of left female breast (principal); C78.02 Secondary malignant neoplasm of left lung; J44.9 Chronic obstructive pulmonary disease, unspecified; L03.313 Cellulitis of chest wall; L98.493 Non-pressure chronic ulcer of skin of other sites with necrosis of muscle; B95.61 Methicillin susceptible Staphylococcus aureus infection as the cause of diseases classified elsewhere; Z17.0 Estrogen receptor positive status [ER+]; Z72.0 Tobacco use

== ENCOUNTER 2018-11-30 16:14 | Inpatient (IN) | payer MEDICARE, OTHER ==
[2018-11-30 17:23] LABS: BASO # 0.1 K/uL (0.0-0.2); BASO % 0.6 % (0.0-2.0); EOS % 0.4 % (0.0-4.0); HEMOGLOBIN 15.3 g/dL (11.0-16.0); LYMPH # 2.2 K/uL (1.0-4.3); MEAN CELL VOLUME 92.9 fL (81.0-99.0); MEAN CORPUSCULAR HEMOGLOBIN 31.2 pg (27.0-31.0); MEAN CORPUSCULAR HGB CONC 33.6 g/dL (33.0-37.0); MEAN PLATELET VOLUME 9.4 fL (7.2-11.7); MONO # 0.6 K/uL (0.0-0.8); MONO % 5.3 % (0.0-10.0); NEUT # 7.9 K/uL (1.8-7.0); NEUT % 73.7 % (50.0-75.0); NRBC % 0.1 % (0.0-2.0); RBC 4.92 Mil/uL (3.80-5.20); RED CELL DISTRIBUTION WIDTH 13.9 % (11.5-14.5); WHITE BLOOD COUNT 10.7 K/uL (4.8-10.8)
[2018-11-30 17:36] LABS: ALB/GLOB RATIO 1.2 (1.0-2.1); ALBUMIN 4.7 g/dL (3.5-5.0); ALT/SGPT 26 U/L (9-52); AST/SGOT 29 U/L (14-36); BLOOD UREA NITROGEN 15 mg/dL (7-17); CALCIUM 9.9 mg/dl (8.6-10.4); GFR NON-AFRICAN AMERICAN > 60
[2018-11-30] MEDS ORDERED: Iohexol 300 100 ML IJ ONE (17:58)
--- NOTE | 2018-11-30 18:28 | C.PDOC ---
History Of Present Illness 68 year old female presents to the ED complaining of open and nonhealing wound to left breast area. Reports the wound has been bleeding for the past 2 days. States she had a breast biopsy in 2017 and was seen int he ED for open wound. As per patient, Dr. Livnigston told her she had an infection and referred her to Dr. Rosas who prescribed her ointments and hormonal medications. Pt reports she did not follow up last year because the wound was getting smaller. Notes she has been losing weight for the last several months. Denies any other complaints. Time Seen by Provider: 11/30/18 16:35 Chief Complaint (Nursing): Abnormal Skin Integrity History Per: Patient History/Exam Limitations: no limitations Onset/Duration Of Symptoms: Days Current Symptoms Are (Timing): Still Present Past Medical History Reviewed: Historical Data, Nursing Documentation, Vital Signs Vital Signs: Last Vital Signs Temp 97.5 F L 11/30/18 16:23 Pulse 127 H 11/30/18 16:23 Resp 18 11/30/18 16:23 BP 153/82 H 11/30/18 16:23 Pulse Ox 96 11/30/18 16:23 Primary Care Provider: Carl Medina R - Medical History PMH: Pneumothorax Denies: Chronic Kidney Disease Other Surgeries: Hx of surgeries - [facility] EXCISION OF LEFT BREAST, EXTERNAL APPROACH (12/24/15) Family History: States: No Known Family Hx - Social History Hx Alcohol Use: Yes (quit 2 years ago) Hx Substance Use: No - Immunization History Hx Tetanus Toxoid Vaccination: No Hx Influenza Vaccination: No Hx Pneumococcal Vaccination: No Review Of Systems Except As Marked, All Systems Reviewed And Found Negative. Constitutional: Positive for: Weight loss. Negative for: Fever, Chills Cardiovascular: Negative for: Chest Pain Respiratory: Negative for: Shortness of Breath Skin: Positive for: Other (bleeding from open breast wound ) Physical Exam - Physical Exam Appears: Non-toxic, No Acute Distress, Other (thin ) Skin: Warm, Dry, Other (ulcerated necrotic open wound to left breast invading chest wall) Head: Normacephalic Eye(s): bilateral: Normal Inspection, PERRL Nose: Normal Oral Mucosa: Moist Neck: Supple Cardiovascular: Rhythm Regular Respiratory: Normal Breath Sounds, No Rales, No Rhonchi, No Wheezing Gastrointestinal/Abdominal: Soft, No Tenderness Back: No CVA Tenderness Extremity: No Pedal Edema Neurological/Psych: Oriented x3, Normal Speech Gait: Steady ED Course And Treatment - Laboratory Results Result Diagrams: 11/30/18 17:20 11/30/18 17:20 Lab Results: Total Bilirubin 0.5 mg/dL (0.2-1.3) 11/30/18 17:20 AST 29 U/L (14-36) 11/30/18 17:20 ALT 26 U/L (9-52) 11/30/18 17:20 Alkaline Phosphatase 84 U/L (38-126) 11/30/18 17:20 Total Protein 8.7 g/dL (6.3-8.3) H 11/30/18 17:20 Albumin 4.7 g/dL (3.5-5.0) 11/30/18 17:20 Globulin 3.9 gm/dL (2.2-3.9) 11/30/18 17:20 Albumin/Globulin Ratio 1.2 (1.0-2.1) 11/30/18 17:20 O2 Sat by Pulse Oximetry: 96 (RA) Pulse Ox Interpretation: Normal - CT Scan/US CT chest with IV contrast Other Rad Studies (CT/US): Read By Radiologist, Radiology Report Reviewed CT/US Interpretation: Accession No. : [id number]. Patient Name / ID : GLADYS BLACKWOOD / [id number]. Exam Date : 11/30/2018 18:07:49 ( Approved ). Study Comment : Sex / Age : F / 68Y. Creator : Keith Contreras MD. Dictator : Keith Contreras MD. Aircraft Mechanic Electrical And Radio : Machine Filler Servicer : Keith Contreras MD. Approver2 : Report Date : 11/30/2018 18:33:45. My Comment : . This report is currently processing and HAS NOT BEEN OFFICIALLY SIGNED BY THE PHYSICIAN - ESTIMATED TIME OF APPROVAL IS 11/30/2018 18:38. Date of service: 11/30/2018. PROCEDURE: CT Chest with contrast. HISTORY: L BREAST CANCER, OPEN WOUND, CHEST WALL DEFORMITY. COMPARISON: 12/24/2015 CT chest. 01/24/2017 CT chest. TECHNIQUE: Contiguous axial images were obtained through the chest with intravenous contrast enhancement. Sagittal and coronal reconstructions were performed. IV contrast: 100 cc Omnipaque 300. Radiation dose: Total exam DLP = 217.03 mGy-cm. This CT exam was performed using one or more of the following dose reduction techniques: Automated exposure control, adjustment of the mA and/or kV according to patient size, and/or use of iterative reconstruction technique. FINDINGS: LUNGS: Stable pulmonary nodules, areas of scarring bilaterally. Underlying emphysematous change with large bulla formation. MEDIASTINUM: Unremarkable thoracic aorta. No aneurysm or dissection. Normal sized heart. Main pulmonary artery unremarkable. No vascular congestion. No lymphadenopathy. No aortic atherosclerotic calcification or mural plaque present. PLEURA: No pleural fluid. No pneumot horax. BONES: No fracture. No destructive lesion. UPPER ABDOMEN: Grossly unremarkable. OTHER FINDINGS: Tumor progression left breast/left chest wall. Tumor extends from the ulcerating portion of the left breast to the chest wall, pleural reflection. Tumor is contiguous with adjacent anterolateral ribs but there are no destructive rib abnormalities. IMPRESSION: Interval progression of tumor recurrence left breast/left chest wall. Large ulcerating mass extends to the pleural reflection. No obvious invasion of the chest wall. No obvious bony destruction. Stable pulmonary parenchymal findings compared to the prior study from 01/24/2017. Progress Note: CT chest ordered. Blood, urine, and wound cultures collected and sent to the lab for analysis. Prior records reviewed - patient was diagnosed with Stage 4 breast cancer 2 years ago. Case was d/w who accepted patient to [facility]. Oncologist called for consult, will see patient tomorrow morning. Disposition - Disposition Disposition: HOSPITALIZED Disposition Time: 18:45 Condition: FAIR Forms: [facility] (Serbian) - Clinical Impression Clinical Impression: Ulcer of chest wall with necrosis of muscle, Breast cancer - PA / PASTRY FINISHER / Resident Statement MD/DO has reviewed & agrees with the documentation as recorded. - Scribe Statement The provider has reviewed the documentation as recorded by the Santi Dela Cruz All medical record entries made by the Joyibzeferino were at my direction and personally dictated by me. I have reviewed the chart and agree that the record accurately reflects my personal performance of the history, physical exam, medical decision making, and the department course for this patient. I have also personally directed, reviewed, and agree with the discharge instructions and disposition. Decision To Admit - Pt Status Changed To: Hospital Disposition Of: Inpatient - Admit Certification Admit to Inpatient:: After my assessment, the patient will require hospitalization for at least two midnights. This is because of the severity of symptoms shown, intensity of services needed, and/or the medical risk in this patient being treated as an outpatient. - InPatient: Physician Admission Certification: I certify that this patient requires 2 or more midnights of care for the following reason:: patient will need oncology consult and treament for more than 2 days - . Bed Request Type: Regular Admitting Physician: Armand Esquivel Patient Diagnosis: Ulcer of chest wall with necrosis of muscle, Breast cancer
--- NOTE | 2018-11-30 18:37 | CT ---
Date of service: 11/30/2018 PROCEDURE: CT Chest with contrast HISTORY: L BREAST CANCER, OPEN WOUND, CHEST WALL DEFORMITY COMPARISON: 12/24/2015 CT chest. 01/24/2017 CT chest. TECHNIQUE: Contiguous axial images were obtained through the chest with intravenous contrast enhancement. Sagittal and coronal reconstructions were performed. IV contrast: 100 cc Omnipaque 300. Radiation dose: Total exam DLP = 217.03 mGy-cm. This CT exam was performed using one or more of the following dose reduction techniques: Automated exposure control, adjustment of the mA and/or kV according to patient size, and/or use of iterative reconstruction technique. FINDINGS: LUNGS: Stable pulmonary nodules, areas of scarring bilaterally. Underlying emphysematous change with large bulla formation. MEDIASTINUM: Unremarkable thoracic aorta. No aneurysm or dissection. Normal sized heart. Main pulmonary artery unremarkable. No vascular congestion. No lymphadenopathy. No aortic atherosclerotic calcification or mural plaque present. PLEURA: No pleural fluid. No pneumothorax. BONES: No fracture. No destructive lesion. UPPER ABDOMEN: Grossly unremarkable. OTHER FINDINGS: Tumor progression left breast/left chest wall. Tumor extends from the ulcerating portion of the left breast to the chest wall, pleural reflection. Tumor is contiguous with adjacent anterolateral ribs but there are no destructive rib abnormalities. IMPRESSION: Interval progression of tumor recurrence left breast/left chest wall. Large ulcerating mass extends to the pleural reflection. No obvious invasion of the chest wall. No obvious bony destruction. Stable pulmonary parenchymal findings compared to the prior study from 01/24/2017.
[2018-11-30 21:55] LABS: SQUAMOUS EPITHIAL < 1 /hpf (0-5); URINE BACTERIA OCC (<OCC); URINE BILIRUBIN NEGATIVE (NEGATIVE); URINE BLOOD 2+ (NEGATIVE); URINE CLARITY Clear (Clear); URINE COLOR Straw (YELLOW); URINE GLUCOSE (UA) NORMAL (Normal); URINE LEUKOCYTE ESTERASE 2+ Leu/uL (Negative); URINE PROTEIN NEGATIVE (NEGATIVE); URINE UROBILINOGEN NORMAL mg/dL (0.2-1.0)
[2018-11-30] MEDS ORDERED: Piperacillin/Tazobact 3.375 GM in Sodium Chloride 100 ML IVPB SCH (22:00)
[2018-11-30] MEDS: Piperacill/Tazo 3.375gm in Dex 3.375 GM/50 ML BAG IVPB SCH (22:31)
--- NOTE | 2018-12-01 02:12 | CP.PCM.CON ---
History of Present Illness - History of Present Illness History of Present Illness: General Surgery Consult for Dr. Cooper reason for consult: breast ca and left breast wound 68 F with PMH of stage IV er/pr/her2 positive left breast CA present to [facility] for complaint of bleeding from left breast wound. She reports that left breast has been open and nonhealing wound to left breast area. Patient reports the wound has been bleeding for the past 2 days. She had a breast biopsy in 2017. Patient was following with Dr. Livingston but she did not follow up last year because the wound was getting smaller. Also reports weight loss for the last several months. Patient has been doing daily wound care with medihoney and dressing changes. Denies fever/chills, cp,SOB, abd pain, n/v/d, incontinence, urinary symptoms. PMH: as above PSH: breast bx ALL: NKDA Review of Systems - Review of Systems All systems: reviewed and no additional remarkable complaints except (as per HPI) Past Patient History - Infectious Disease Hx of Infectious Diseases: None - Past Medical History & Family History Past Medical History?: Yes - Past Social History Smoking Status: Light Smoker < 10 Cigarettes Daily - CARDIAC Hx Cardiac Disorders: No - PULMONARY Hx Respiratory Disorders: Yes Other/Comment: pneumothorax - NEUROLOGICAL Hx Neurological Disorder: No - HEENT Hx HEENT Problems: No - RENAL Hx Chronic Kidney Disease: No - ENDOCRINE/METABOLIC Hx Endocrine Disorders: No - HEMATOLOGICAL/ONCOLOGICAL Hx Blood Disorders: No Other/Comment: PT DENIES HISTORY - INTEGUMENTARY Hx Dermatological Problems: No Other/Comment: left breast open ulceration - MUSCULOSKELETAL/RHEUMATOLOGICAL Hx Musculoskeletal Disorders: No Hx Falls: No - GASTROINTESTINAL Hx Gastrointestinal Disorders: No Hx Vomiting: No - GENITOURINARY/GYNECOLOGICAL Hx Genitourinary Disorders: No - PSYCHIATRIC Hx Psychophysiologic Disorder: No Hx Substance Use: No - SURGICAL HISTORY Hx Surgeries: Yes Hx Breast Biopsy: Yes - ANESTHESIA Hx Anesthesia: Yes Hx Anesthesia Reactions: No Hx Malignant Hyperthermia: No Meds Allergies/Adverse Reactions: Allergies Allergy/AdvReac Type Severity Reaction Status Date / Time No Known Allergies Allergy Verified 01/22/17 18:05 - Medications Medications: Current Medications Piperacillin Sod/Tazobactam Sod (Zosyn 3.375 Gm Iv Premix) 3.375 gm in 50 mls @ 200 mls/hr IVPB Q8H [facility]; Protocol Last Admin: 11/30/18 22:31 Dose: 200 mls/hr Pantoprazole Sodium (Protonix Ec Tab) 40 mg PO DAILY JET Tramadol HCl (Ultram) 50 mg PO Q6 PRN PRN Reason: Pain, moderate (4-7) Physical Exam - Constitutional Appears: No Acute Distress - Head Exam Head Exam: ATRAUMATIC, NORMOCEPHALIC - Eye Exam Eye Exam: EOMI, Normal appearance Pupil Exam: PERRL - ENT Exam ENT Exam: Mucous Membranes Moist - Respiratory Exam Respiratory Exam: NORMAL BREATHING PATTERN - Cardiovascular Exam Cardiovascular Exam: REGULAR RHYTHM - GI/Abdominal Exam GI & Abdominal Exam: Normal Bowel Sounds, Soft. absent: Tenderness - Extremities Exam Extremities exam: Positive for: normal capillary refill, pedal pulses present - Back Exam Back exam: absent: CVA tenderness (L), CVA tenderness (R) - Neurological Exam Neurological exam: Alert, Oriented x3 - Psychiatric Exam Psychiatric exam: Normal Affect, Normal Mood - Skin Additional comments: large open left breast wound with no bleeding or drainage noted, dressing changed Results - Vital Signs Recent Vital Signs: Last Vital Signs Temp 97.9 F 11/30/18 23:25 Pulse 92 H 11/30/18 23:25 Resp 18 12/01/18 00:13 BP 115/59 L 11/30/18 23:25 Pulse Ox 97 11/30/18 23:25 - Labs Result Diagrams: 11/30/18 17:20 11/30/18 17:20 Labs: Laboratory Results - last 24 hr 11/30/18 11/30/18 11/30/18 16:31 17:20 17:20 WBC 10.7 RBC 4.92 Hgb 15.3 Hct 45.6 MCV 92.9 MCH 31.2 H MCHC 33.6 RDW 13.9 Plt Count 201 MPV 9.4 Neut % (Auto) 73.7 Lymph % (Auto) 20.0 [place] % (Auto) 5.3 Eos % (Auto) 0.4 Baso % (Auto) 0.6 Neut # (Auto) 7.9 H Lymph # (Auto) 2.2 [place] # (Auto) 0.6 Eos # (Auto) 0.0 Baso # (Auto) 0.1 Sodium 142 Potassium 3.9 Chloride 101 Carbon Dioxide 29 Anion Gap 16 BUN 15 Creatinine 0.7 Est GFR ( Amer) > 60 Est GFR (Non-Af Amer) > 60 POC Glucose (mg/dL) 124 H Random Glucose 123 H D Calcium 9.9 Total Bilirubin 0.5 AST 29 ALT 26 Alkaline Phosphatase 84 Total Protein 8.7 H Albumin 4.7 Globulin 3.9 Albumin/Globulin Ratio 1.2 Urine Color Urine Clarity Urine pH Ur Specific [place]asser Urine Protein Urine Glucose (UA) Urine Ketones Urine Blood Urine Nitrate Urine Bilirubin Urine Urobilinogen Ur Leukocyte Esterase Urine WBC (Auto) Urine RBC (Auto) Ur Squamous Epith Cells Urine Bacteria 11/30/18 21:44 WBC RBC Hgb Hct MCV MCH MCHC RDW Plt Count MPV Neut % (Auto) Lymph % (Auto) [place] % (Auto) Eos % (Auto) Baso % (Auto) Neut # (Auto) Lymph # (Auto) [place] # (Auto) Eos # (Auto) Baso # (Auto) Sodium Potassium Chloride Carbon Dioxide Anion Gap BUN Creatinine Est GFR ( Amer) Est GFR (Non-Af Amer) POC Glucose (mg/dL) Random Glucose Calcium Total Bilirubin AST ALT Alkaline Phosphatase Total Protein Albumin Globulin Albumin/Globulin Ratio Urine Color Straw Urine Clarity Clear Urine pH 5.0 Ur Specific [place] 1.035 H Urine Protein Negative Urine Glucose (UA) Normal Urine Ketones Negative Urine Blood 2+ H Urine Nitrate Negative Urine Bilirubin Negative Urine Urobilinogen Normal Ur Leukocyte Esterase 2+ H Urine WBC (Auto) 24 H Urine RBC (Auto) 15 H Ur Squamous Epith Cells < 1 Urine Bacteria Occ H Assessment & Plan - Assessment and Plan (Free Text) Assessment: 68 F with PMH of stage IV er/pr/her2 positive left breast CA present to [facility] for complaint of bleeding from left breast wound. Plan: -diet as tolerated -dressing chnages daily or as needed with [facility] -Wound care consult -medical management as per primary -further recs as per Dr. Kenneth brown PGY2 - Date & Time Date: 12/01/18 Time: 03:00
[2018-12-01] MEDS: Piperacill/Tazo 3.375gm in Dex 3.375 GM/50 ML BAG IVPB SCH ×3 (05:30→21:25)
[2018-12-01 08:33] VITALS: RESP 20
[2018-12-01] MEDS: Pantoprazole 40 mg EC Tab PO SCH (09:20)
[2018-12-01] MEDS: Enoxaparin 40 mg Syringe SC SCH (10:05)
--- NOTE | 2018-12-01 19:39 | CP.PCM.HP ---
Past Patient History - Infectious Disease Hx of Infectious Diseases: None - Past Medical History & Family History Past Medical History?: Yes - Past Social History Smoking Status: Light Smoker < 10 Cigarettes Daily - CARDIAC Hx Cardiac Disorders: No - PULMONARY Hx Respiratory Disorders: Yes Other/Comment: pneumothorax - NEUROLOGICAL Hx Neurological Disorder: No - HEENT Hx HEENT Problems: No - RENAL Hx Chronic Kidney Disease: No - ENDOCRINE/METABOLIC Hx Endocrine Disorders: No - HEMATOLOGICAL/ONCOLOGICAL Hx Blood Disorders: No Other/Comment: PT DENIES HISTORY - INTEGUMENTARY Hx Dermatological Problems: No Other/Comment: left breast open ulceration - MUSCULOSKELETAL/RHEUMATOLOGICAL Hx Musculoskeletal Disorders: No Hx Falls: No - GASTROINTESTINAL Hx Gastrointestinal Disorders: No Hx Vomiting: No - GENITOURINARY/GYNECOLOGICAL Hx Genitourinary Disorders: No - PSYCHIATRIC Hx Psychophysiologic Disorder: No Hx Substance Use: No - SURGICAL HISTORY Hx Surgeries: Yes Hx Breast Biopsy: Yes - ANESTHESIA Hx Anesthesia: Yes Hx Anesthesia Reactions: No Hx Malignant Hyperthermia: No Meds Allergies/Adverse Reactions: Allergies Allergy/AdvReac Type Severity Reaction Status Date / Time No Known Allergies Allergy Verified 01/22/17 18:05 Physical Exam - Constitutional Appears: Well - Head Exam Head Exam: ATRAUMATIC, NORMAL INSPECTION, NORMOCEPHALIC - Eye Exam Eye Exam: EOMI, Normal appearance, PERRL Pupil Exam: NORMAL ACCOMODATION, PERRL - ENT Exam ENT Exam: Mucous Membranes Moist, Normal Exam - Neck Exam Neck exam: Positive for: Normal Inspection - Respiratory Exam Respiratory Exam: Decreased Breath Sounds - Cardiovascular Exam Cardiovascular Exam: REGULAR RHYTHM, +S1, +S2 - GI/Abdominal Exam GI & Abdominal Exam: Diminished Bowel Sounds, Soft - Rectal Exam Rectal Exam: Deferred - Neurological Exam Neurological exam: Oriented x3 Results - Vital Signs Recent Vital Signs: Last Vital Signs Temp 98.1 F 12/01/18 15:05 Pulse 85 12/01/18 15:05 Resp 20 12/01/18 15:05 BP 93/58 L 12/01/18 15:05 Pulse Ox 97 12/01/18 15:05 - Labs Result Diagrams: 11/30/18 17:20 11/30/18 17:20 Labs: Laboratory Results - last 24 hr 11/30/18 21:44 Urine Color Straw Urine Clarity Clear Urine pH 5.0 Ur Specific [place] 1.035 H Urine Protein Negative Urine Glucose (UA) Normal Urine Ketones Negative Urine Blood 2+ H Urine Nitrate Negative Urine Bilirubin Negative Urine Urobilinogen Normal Ur Leukocyte Esterase 2+ H Urine WBC (Auto) 24 H Urine RBC (Auto) 15 H Ur Squamous Epith Cells < 1 Urine Bacteria Occ H
--- NOTE | 2018-12-01 20:27 | CP.PCM.CON ---
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 The patient was initially diagnosed in 12/2015 after presenting with a large ulcerated breast mass. She deferred radiation therapy and was placed on exemestane with excellent response. She has not been seen in the office since 05/2016. She reports the breast mass shrank considerably but she ran out of medication in 11/2017 and felt so good that she elected to not pursue further care. Past medical history: Stage IV breast cancer Past surgical history: None Family history: Denies hematologic and oncologic problems Social history: +tobacco abuse Allergies: NKA Review of systems: All remaining review of systems including HEENT, cardiovascular, respiratory, gastrointestinal, genitourinary, musculoskeletal, dermatologic, neurologic, and psychiatric are negative unless mentioned in the HPI. Past Patient History - Infectious Disease Hx of Infectious Diseases: None - Past Medical History & Family History Past Medical History?: Yes - Past Social History Smoking Status: Light Smoker < 10 Cigarettes Daily - CARDIAC Hx Cardiac Disorders: No - PULMONARY Hx Respiratory Disorders: Yes Other/Comment: pneumothorax - NEUROLOGICAL Hx Neurological Disorder: No - HEENT Hx HEENT Problems: No - RENAL Hx Chronic Kidney Disease: No - ENDOCRINE/METABOLIC Hx Endocrine Disorders: No - HEMATOLOGICAL/ONCOLOGICAL Hx Blood Disorders: No Other/Comment: PT DENIES HISTORY - INTEGUMENTARY Hx Dermatological Problems: No Other/Comment: left breast open ulceration - MUSCULOSKELETAL/RHEUMATOLOGICAL Hx Musculoskeletal Disorders: No Hx Falls: No - GASTROINTESTINAL Hx Gastrointestinal Disorders: No Hx Vomiting: No - GENITOURINARY/GYNECOLOGICAL Hx Genitourinary Disorders: No - PSYCHIATRIC Hx Psychophysiologic Disorder: No Hx Substance Use: No - SURGICAL HISTORY Hx Surgeries: Yes Hx Breast Biopsy: Yes - ANESTHESIA Hx Anesthesia: Yes Hx Anesthesia Reactions: No Hx Malignant Hyperthermia: No Meds Allergies/Adverse Reactions: Allergies Allergy/AdvReac Type Severity Reaction Status Date / Time No Known Allergies Allergy Verified 01/22/17 18:05 - Medications Medications: Current Medications Enoxaparin Sodium (Lovenox) 40 mg SC DAILY [facility] Last Admin: 12/01/18 10:05 Dose: Not Given Piperacillin Sod/Tazobactam Sod (Zosyn 3.375 Gm Iv Premix) 3.375 gm in 50 mls @ 200 mls/hr IVPB Q8H [facility]; Protocol Last Admin: 12/01/18 13:55 Dose: 200 mls/hr Pantoprazole Sodium (Protonix Ec Tab) 40 mg PO DAILY [facility] Last Admin: 12/01/18 09:20 Dose: 40 mg Tramadol HCl (Ultram) 50 mg PO Q6 PRN PRN Reason: Pain, moderate (4-7) Physical Exam - Head Exam Head Exam: ATRAUMATIC - Eye Exam Eye Exam: Normal appearance - ENT Exam ENT Exam: Mucous Membranes Dry - Respiratory Exam Respiratory Exam: NORMAL BREATHING PATTERN - Cardiovascular Exam Cardiovascular Exam: +S1, +S2 - GI/Abdominal Exam GI & Abdominal Exam: Normal Bowel Sounds - Extremities Exam Extremities exam: Positive for: normal inspection - Neurological Exam Neurological exam: Oriented x3 - Psychiatric Exam Psychiatric exam: Normal Affect, Normal Mood - Skin Skin Exam: Warm Results - Vital Signs Recent Vital Signs: Last Vital Signs Temp 98.1 F 12/01/18 15:05 Pulse 85 12/01/18 15:05 Resp 20 12/01/18 15:05 BP 93/58 L 12/01/18 15:05 Pulse Ox 97 12/01/18 15:05 - Labs Result Diagrams: 12/02/18 13:44 12/02/18 13:44 Labs: Laboratory Results - last 24 hr 11/30/18 21:44 Urine Color Straw Urine Clarity Clear Urine pH 5.0 Ur Specific [place] 1.035 H Urine Protein Negative Urine Glucose (UA) Normal Urine Ketones Negative Urine Blood 2+ H Urine Nitrate Negative Urine Bilirubin Negative Urine Urobilinogen Normal Ur Leukocyte Esterase 2+ H Urine WBC (Auto) 24 H Urine RBC (Auto) 15 H Ur Squamous Epith Cells < 1 Urine Bacteria Occ H Assessment & Plan (1) Breast cancer Assessment and Plan: stage IV, triple positive chest wall and lung involvement restart exemestane 25mg daily; I have called in 1 year of medication to her local pharmay she will try to have f/u with me as an outpatient but she reports to financial difficulty arranging for transportation Thank you for this interesting consult. Status: Acute
[2018-12-02] MEDS: Piperacill/Tazo 3.375gm in Dex 3.375 GM/50 ML BAG IVPB SCH ×3 (06:11→21:07)
--- NOTE | 2018-12-02 09:20 | CP.PCM.PN ---
Subjective - Date & Time of Evaluation Date of Evaluation: 12/02/18 Time of Evaluation: 09:20 - Subjective Subjective: Progress note for Dr. Kev Esquivel Patient was seen and examined at bedside in no acute distress. Patient reports feeling well and has no complaints. She states she has been applying medihoney to her left breast wound and changing the dressings. She denies chest pain, palpitations, dyspnea, cough, n/v, fevers, abdominal pain, leg pain, swelling, dysuria, constipation/diarrhea, purulent drainage and breast tenderness. Objective - Vital Signs/Intake and Output Vital Signs (last 24 hours): Temp Pulse Resp BP Pulse Ox 97.3 F L 78 20 93/57 L 95 12/02/18 08:23 12/02/18 08:23 12/02/18 08:23 12/02/18 08:23 12/02/18 08:23 - Medications Medications: Current Medications Enoxaparin Sodium (Lovenox) 40 mg SC DAILY [facility] Last Admin: 12/01/18 10:05 Dose: Not Given Piperacillin Sod/Tazobactam Sod (Zosyn 3.375 Gm Iv Premix) 3.375 gm in 50 mls @ 200 mls/hr IVPB Q8H [facility]; Protocol Last Admin: 12/02/18 06:11 Dose: 200 mls/hr Pantoprazole Sodium (Protonix Ec Tab) 40 mg PO DAILY [facility] Last Admin: 12/01/18 09:20 Dose: 40 mg Tramadol HCl (Ultram) 50 mg PO Q6 PRN PRN Reason: Pain, moderate (4-7) - Labs Labs: 11/30/18 17:20 11/30/18 17:20 - Constitutional Appears: No Acute Distress - Head Exam Head Exam: ATRAUMATIC, NORMAL INSPECTION - Eye Exam Eye Exam: EOMI, Normal appearance - ENT Exam ENT Exam: Mucous Membranes Moist - Respiratory Exam Respiratory Exam: Clear to Ausculation Bilateral, NORMAL BREATHING PATTERN. absent: Rhonchi, Wheezes, Respiratory Distress - Cardiovascular Exam Cardiovascular Exam: REGULAR RHYTHM, +S1, +S2 - GI/Abdominal Exam GI & Abdominal Exam: Soft, Normal Bowel Sounds. absent: Distended, Firm, Guarding, Tenderness - Extremities Exam Extremities Exam: Normal Inspection. absent: Pedal Edema, Tenderness - Neurological Exam Neurological Exam: Alert, Awake, Oriented x3 - Psychiatric Exam Psychiatric exam: Normal Affect, Normal Mood - Skin Skin Exam: Dry, Warm Additional comments: Left breast- dressing clean, intact, dry; nontender Assessment and Plan - Assessment and Plan (Free Text) Plan: 68 F with PMH of stage IV er/pr/her2 positive left breast CA presented to [facility] for complaint of bleeding from left breast wound. Left Breast wound - Hx of breast cancer, currently undergoing treatment with Dr. Livingston - Dr. Livingston consulted, help appreciated - Surgery consulted, Dr. Cooper--> no surgical intervention at this time - Wound cx: + staph aureus - Continue Zosyn 3.375g IV Q8h (started on 11/30/18) and vanc 1g IV Q24 (started on 12/02/18) - Wound care Breast cancer - See Dr. Livingston outpatient; Dr. Livingston consulted Prophylaxis - DVT: SCDs, lovenox 40mg sc daily - GI: protonix 40mg po daily Plan/case discussed with Dr. Kev Ashby, PGY2
[2018-12-02] MEDS: Pantoprazole 40 mg EC Tab PO SCH (10:34)
[2018-12-02] MEDS: Enoxaparin 40 mg Syringe SC SCH (10:34)
[2018-12-02 13:50] LABS: BASO # 0.1 K/uL (0.0-0.2); EOS # 0.1 K/uL (0.0-0.7); EOS % 1.4 % (0.0-4.0); HEMOGLOBIN 13.4 g/dL (11.0-16.0); LYMPH # 2.1 K/uL (1.0-4.3); LYMPH % 27.6 % (20.0-40.0); MEAN CELL VOLUME 91.8 fL (81.0-99.0); MEAN CORPUSCULAR HGB CONC 34.8 g/dL (33.0-37.0); MEAN PLATELET VOLUME 10.4 fL (7.2-11.7); MONO # 0.5 K/uL (0.0-0.8); MONO % 7.1 % (0.0-10.0); NEUT # 4.7 K/uL (1.8-7.0); NEUT % 62.9 % (50.0-75.0); RBC 4.2 Mil/uL (3.80-5.20); RED CELL DISTRIBUTION WIDTH 13.8 % (11.5-14.5); WHITE BLOOD COUNT 7.5 K/uL (4.8-10.8)
[2018-12-02 14:10] LABS: ALB/GLOB RATIO 1.4 (1.0-2.1); ALBUMIN 4.2 g/dL (3.5-5.0); ALT/SGPT 28 U/L (9-52); AST/SGOT 33 U/L (14-36); BLOOD UREA NITROGEN 15 mg/dL (7-17); CALCIUM 9.2 mg/dl (8.6-10.4); GFR NON-AFRICAN AMERICAN > 60
--- NOTE | 2018-12-02 18:54 | CP.PCM.PN ---
Subjective - Date & Time of Evaluation Date of Evaluation: 12/02/18 Time of Evaluation: 17:00 - Subjective Subjective: No complaints. Objective - Vital Signs/Intake and Output Vital Signs (last 24 hours): Temp Pulse Resp BP Pulse Ox 97.7 F 72 20 106/52 L 98 12/02/18 15:00 12/02/18 15:00 12/02/18 15:00 12/02/18 15:00 12/02/18 15:00 Intake and Output: 12/02/18 12/02/18 06:59 18:59 Intake Total 600 Balance 600 - Medications Medications: Current Medications Enoxaparin Sodium (Lovenox) 40 mg SC DAILY [facility] Last Admin: 12/02/18 10:34 Dose: Not Given Piperacillin Sod/Tazobactam Sod (Zosyn 3.375 Gm Iv Premix) 3.375 gm in 50 mls @ 200 mls/hr IVPB Q8H [facility]; Protocol Last Admin: 12/02/18 13:24 Dose: 200 mls/hr Vancomycin HCl 1 gm/ Sodium (Chloride) 250 mls @ 166.7 mls/hr IVPB Q24H [facility]; Protocol Last Admin: 12/02/18 16:32 Dose: 166.7 mls/hr Pantoprazole Sodium (Protonix Ec Tab) 40 mg PO DAILY [facility] Last Admin: 12/02/18 10:34 Dose: 40 mg Tramadol HCl (Ultram) 50 mg PO Q6 PRN PRN Reason: Pain, moderate (4-7) - Labs Labs: 12/02/18 13:44 12/02/18 13:44 - Head Exam Head Exam: ATRAUMATIC - Eye Exam Eye Exam: Normal appearance - ENT Exam ENT Exam: Mucous Membranes Dry - Respiratory Exam Respiratory Exam: NORMAL BREATHING PATTERN - Cardiovascular Exam Cardiovascular Exam: +S1, +S2 - GI/Abdominal Exam GI & Abdominal Exam: Normal Bowel Sounds Assessment and Plan (1) Breast cancer Assessment & Plan: stage IV restart endocrine therapy as outpatient; i called in 1 year of medication to her local pharmacy outpatient f/u Status: Acute
--- NOTE | 2018-12-02 19:00 | CP.PCM.PN ---
Subjective - Date & Time of Evaluation Date of Evaluation: 12/02/18 - Subjective Subjective: patient examined today no nausea no vomiting no fever no dizziness no shortness of breath no diarrhea Objective - Vital Signs/Intake and Output Vital Signs (last 24 hours): Temp Pulse Resp BP Pulse Ox 97.7 F 72 20 106/52 L 98 12/02/18 15:00 12/02/18 15:00 12/02/18 15:00 12/02/18 15:00 12/02/18 15:00 Intake and Output: 12/02/18 12/02/18 06:59 18:59 Intake Total 600 Balance 600 - Medications Medications: Current Medications Enoxaparin Sodium (Lovenox) 40 mg SC DAILY [facility] Last Admin: 12/02/18 10:34 Dose: Not Given Piperacillin Sod/Tazobactam Sod (Zosyn 3.375 Gm Iv Premix) 3.375 gm in 50 mls @ 200 mls/hr IVPB Q8H [facility]; Protocol Last Admin: 12/02/18 13:24 Dose: 200 mls/hr Vancomycin HCl 1 gm/ Sodium (Chloride) 250 mls @ 166.7 mls/hr IVPB Q24H [facility]; Protocol Last Admin: 12/02/18 16:32 Dose: 166.7 mls/hr Pantoprazole Sodium (Protonix Ec Tab) 40 mg PO DAILY [facility] Last Admin: 12/02/18 10:34 Dose: 40 mg Tramadol HCl (Ultram) 50 mg PO Q6 PRN PRN Reason: Pain, moderate (4-7) - Labs Labs: 12/02/18 13:44 12/02/18 13:44 - Constitutional Appears: Well - Head Exam Head Exam: ATRAUMATIC, NORMAL INSPECTION, NORMOCEPHALIC - Eye Exam Eye Exam: EOMI, Normal appearance, PERRL Pupil Exam: NORMAL ACCOMODATION, PERRL - ENT Exam ENT Exam: Mucous Membranes Moist, Normal Exam - Neck Exam Neck Exam: Full ROM, Normal Inspection. absent: Lymphadenopathy - Respiratory Exam Respiratory Exam: Decreased Breath Sounds - Cardiovascular Exam Cardiovascular Exam: REGULAR RHYTHM, +S1, +S2 - GI/Abdominal Exam GI & Abdominal Exam: Soft, Diminished Bowel Sounds - Rectal Exam Rectal Exam: Deferred - Neurological Exam Neurological Exam: Oriented x3 Assessment and Plan - Assessment and Plan (Free Text) Plan: medications reviewed plan discussed with patient and family moderate complexity of care labs reviewed vitals reviewed lovenox protonix ec tab vancomycin ultram zosyn
[2018-12-03] MEDS: Piperacill/Tazo 3.375gm in Dex 3.375 GM/50 ML BAG IVPB SCH (05:23)
[2018-12-03 07:52] VITALS: BP 109/59; PULSE 76; TEMP 97.4; O2SAT 96
--- NOTE | 2018-12-03 08:57 | CP.PCM.PN ---
Subjective - Date & Time of Evaluation Date of Evaluation: 12/03/18 Time of Evaluation: 08:56 - Subjective Subjective: PGY-[address] Cleopatra Esquivel Patient seen and examined at bedside. Per nursing no acute events occurred overnight. Patient denies any fevers, chills, headaches, dizziness, chest pain, shortness of breath, or any other complaints. Objective - Vital Signs/Intake and Output Vital Signs (last 24 hours): Temp Pulse Resp BP Pulse Ox 97.4 F L 76 20 109/59 L 96 12/03/18 07:25 12/03/18 07:25 12/03/18 07:25 12/03/18 07:25 12/03/18 07:25 Intake and Output: 12/03/18 12/03/18 06:59 18:59 Intake Total 50 Balance 50 - Medications Medications: Current Medications Enoxaparin Sodium (Lovenox) 40 mg SC DAILY [facility] Last Admin: 12/02/18 10:34 Dose: Not Given Piperacillin Sod/Tazobactam Sod (Zosyn 3.375 Gm Iv Premix) 3.375 gm in 50 mls @ 200 mls/hr IVPB Q8H [facility]; Protocol Last Admin: 12/03/18 05:23 Dose: 200 mls/hr Vancomycin HCl 1 gm/ Sodium (Chloride) 250 mls @ 166.7 mls/hr IVPB Q24H [facility]; Protocol Last Admin: 12/02/18 16:32 Dose: 166.7 mls/hr Pantoprazole Sodium (Protonix Ec Tab) 40 mg PO DAILY [facility] Last Admin: 12/02/18 10:34 Dose: 40 mg Tramadol HCl (Ultram) 50 mg PO Q6 PRN PRN Reason: Pain, moderate (4-7) - Labs Labs: 12/02/18 13:44 12/02/18 13:44 - Head Exam Head Exam: ATRAUMATIC, NORMAL INSPECTION, NORMOCEPHALIC - Eye Exam Eye Exam: EOMI, Normal appearance, PERRL. absent: Periorbital tenderness Pupil Exam: NORMAL ACCOMODATION, PERRL. absent: Irregular, Unequal - ENT Exam ENT Exam: Mucous Membranes Moist, Normal Oropharynx - Neck Exam Neck Exam: Normal Inspection - Respiratory Exam Respiratory Exam: Clear to Ausculation Bilateral, NORMAL BREATHING PATTERN. absent: Prolonged Expiratory Phase, Respiratory Distress - Cardiovascular Exam Cardiovascular Exam: REGULAR RHYTHM, RRR, +S1, +S2. absent: Rubs - GI/Abdominal Exam GI & Abdominal Exam: Soft, Normal Bowel Sounds. absent: Hyperactive Bowel Sounds - Extremities Exam Extremities Exam: Full ROM, Normal Inspection. absent: Pedal Edema - Back Exam Back Exam: NORMAL INSPECTION. absent: CVA tenderness (R), paraspinal tenderness - Neurological Exam Neurological Exam: Alert, Awake, CN II-XII Intact, Oriented x3 - Psychiatric Exam Psychiatric exam: Normal Affect, Normal Mood - Skin Skin Exam: Dry, Intact, Normal Color Assessment and Plan - Assessment and Plan (Free Text) Plan: 68 F with PMH of stage IV er/pr/her2 positive left breast CA presented to [facility] [place] for complaint of bleeding from left breast wound. Left Breast wound - Hx of breast cancer, currently undergoing treatment with Dr. Livingston - Dr. Livingston consulted, help appreciated - Surgery consulted, Dr. Cooper--> no surgical intervention at this time - Wound cx: + staph aureus - Continue Zosyn 3.375g IV Q8h (started on 11/30/18) and vanc 1g IV Q24 (started on 12/02/18) - Wound care Breast cancer - See Dr. Livingston outpatient; Dr. Livingston consulted Prophylaxis - DVT: SCDs, lovenox 40mg sc daily - GI: protonix 40mg po daily Plan/case discussed with Dr. Kev Esquivel Discharge Instructions: 1.F/u with PMD withint 5 days of discharge. 2.F/u with Dr. Livingston within 5 days of discharge. 3.Return to hospital for any new or worsening symptoms. Medications: 1.Ciprofloxacin 500mg PO BID, #14, No refills. Camilo Penn, PGY-2
[2018-12-03] MEDS: Pantoprazole 40 mg EC Tab PO SCH (09:22)
[2018-12-03] MEDS: Enoxaparin 40 mg Syringe SC SCH (09:22)
--- NOTE | 2018-12-05 21:57 | CP.PCM.PN ---
Subjective - Date & Time of Evaluation Date of Evaluation: 12/03/18 Time of Evaluation: 12:00 - Subjective Subjective: No complaints. Objective - Vital Signs/Intake and Output Vital Signs (last 24 hours): Temp Pulse Resp BP Pulse Ox 97.4 F L 76 20 109/59 L 96 12/03/18 07:25 12/03/18 07:25 12/03/18 07:25 12/03/18 07:25 12/03/18 07:25 - Labs Labs: 12/02/18 13:44 12/02/18 13:44 - Head Exam Head Exam: ATRAUMATIC - Eye Exam Eye Exam: Normal appearance - ENT Exam ENT Exam: Mucous Membranes Dry - Respiratory Exam Respiratory Exam: NORMAL BREATHING PATTERN - Cardiovascular Exam Cardiovascular Exam: +S1, +S2 - GI/Abdominal Exam GI & Abdominal Exam: Normal Bowel Sounds Assessment and Plan (1) Breast cancer Assessment & Plan: stage IV restart endocrine therapy as outpatient; i called in 1 year of medication to her local pharmacy outpatient f/u Status: Acute
== END 2018-12-03 11:44 | disposition home or self-care (01) | DRG 598 ==
LOC: C.ER 16:14 → C.9E 18:38 → C.6T 22:10
PROVIDERS: ADMIT Internal Medicine Nephrology; ATTEND Internal Medicine Nephrology
DX: C50.912 Malignant neoplasm of unspecified site of left female breast (principal); C78.00 Secondary malignant neoplasm of unspecified lung; Z68.1 Body mass index [BMI] 19.9 or less, adult; Z15.01 Genetic susceptibility to malignant neoplasm of breast; F17.210 Nicotine dependence, cigarettes, uncomplicated; R63.4 Abnormal weight loss